=== PATIENT | female | born 1950 | race Caucasian/White ===

== ENCOUNTER 2017-12-03 17:57 | Inpatient (IN) | payer MEDICARE, MEDICAID, SELFPAY ==
[2017-12-03] VITALS (10 sets, daily range): BP systolic 111–144; BP diastolic 59–80; PULSE 76–89; RESP 15–20; TEMP 36.6–37.5; O2SAT 85–95; BMI 49.4; BMI 49.1; BMI 49.5
--- NOTE | 2017-12-03 18:34 | EKG12_ITS ---
Test Reason : Blood Pressure : / mmHG Vent. Rate : 085 BPM Atrial Rate : 085 BPM P-R Int : 138 ms QRS Dur : 074 ms QT Int : 364 ms P-R-T Axes : 063 -21 035 degrees QTc Int : 433 ms Normal sinus rhythm Normal ECG Confirmed by ANGELA ALCAZAR ([id number]), commissioning editor MARSHAL KERR ([id number] on 12/05/2017 2:52:13 PM Referred By: MARTÍN Confirmed By:ANGELA ALCAZAR
--- NOTE | 2017-12-03 18:36 | RAD_ITS ---
XR Chest 1 View INDICATION: GENERAL ILLNESS, SOB COMPARISON: September 2017 TECHNIQUE: Frontal view of the chest FINDINGS: Heart size is at the upper limits of normal. Bilateral hilar regions are markedly prominent. Hazy and patchy opacities are seen throughout the lower lung castellanos. There is no evidence of pleural effusion or pneumothorax. Osseous structures are grossly unremarkable. RAD/Chest 1 View (Portable) IMPRESSION: Increasing prominence of the bilateral hilar regions, may be vascular or lymphadenopathy. Mild edema with developing atelectasis or consolidation at the lung bases. Follow-up with additional lateral view is recommended. at 1934 Reported and signed by: Mague Hill MD Electronically Signed: Mague Hill MD at 18:32 EST Tel , Service support ,
--- NOTE | 2017-12-03 18:48 | US_ITS ---
US Venous Duplex LE Unilat / Limited INDICATION: LT LOWER LEG SWELLING AND EDEMA COMPARISON: None TECHNIQUE: Ultrasonographic grayscale, Doppler and duplex investigation of the venous structures of the left lower extremity. FINDINGS: There is normal flow and compressibility and no evidence of thrombus in the left common femoral vein and common femoral vein - greater saphenous vein junction. There is normal flow and no evidence of thrombus in the left superficial femoral vein, popliteal vein and posterior tibial vein. Views on the perineal vein are limited. The left greater saphenous vein at the level of the distal thigh to the mid calf is noncompressible and demonstrates internal echoes, compatible with acute thrombosis. Edema is seen at the distal left lower extremity US/Venous Duplex Imag/Limited/Uni IMPRESSION: Superficial venous thrombosis involving the left greater saphenous vein from the distal thigh to the mid calf. Deep venous system is patent. at 2019 Reported and signed by: Mague Hill MD Electronically Signed: Mague Hill MD at 19:17 EST Tel , Service support ,
[2017-12-03 18:57] LABS: Absolute Lymphocyte Count 1.14 X10^3/ul (0.83-4.51); Absolute Neutrophil Count 5.1 X10^3/uL (2.0-7.7); Basophil# 0.02 X10^3/uL; Basophil% 0.3 % (0-1); Eosinophil# 0.25 X10^3/uL; Eosinophils% 3.4 % (0-5); Hematocrit 53.6 % (37-47); Lymphocyte # 1.14 X10^3/ul (4.0); Lymphocyte % 15.4 % (19-41); Mean Corp Hgb Conc 29.9 g/gl (32-36); Mean Corpuscular Hgb 28.4 pg (27.0-32.0); Mean Corpuscular Volume 95.2 fL (81-99); Mean Platelet Vol. 9.8 fl (6.2-12.0); Monocyte# 0.86 X10^3/uL; Monocyte% 11.7 % (0-10); Neutrophil % 69.1 % (47-70); POSITIVE COUNT NO; POSITIVE DIFFERENTIAL NO; POSITIVE MORPHOLOGY NO; Platelet Count 201 K/mm3 (150-450); RBC Distribution Width CV 16.1 % (11.6-14.6); RBC Distribution Width SD 55.3 fl (35.1-43.9); Red Blood Count 5.63 M/mm3 (4.2-5.4); White Blood Count 7.4 K/mm3 (4.4-11.0)
[2017-12-03] MEDS: Albuterol 2.5 MG/3 ML VIAL.NEB. INHALATION ×2 (18:58)
[2017-12-03 19:56] LABS: Lactic Acid 0.7 mmol/L (0.4-2.0)
--- NOTE | 2017-12-03 21:00 | NURSING ---
WHEN THE PT WALKED TO THE BATHROOM WITHOUT OXYGEN THE PT DROPPED DOWN TO 62% HAD TO TEMPORARILY PUT ON A NONBREATHER AND NOW BACK ON 6 LITERS OF OXYGEN.
--- NOTE | 2017-12-03 21:18 | HP.PCM_ITS ---
Problem List (1) CAP (community acquired pneumonia) Status: Acute Qualifiers: Lung location: unspecified part of lung (2) Chronic diastolic heart failure Status: Chronic (3) Obesity Status: Chronic Qualifiers: Obesity type: unspecified obesity type Obesity classification: unspecified obesity classification (4) HTN (hypertension) Status: Chronic Qualifiers: Hypertension type: essential hypertension Qualified Code(s): I10 - Essential (primary) hypertension (5) Hyperlipidemia Status: Chronic Qualifiers: Hyperlipidemia type: unspecified Qualified Code(s): E78.5 - Hyperlipidemia , unspecified History of Present Illness Date of Admission: 12/03/17 Chief Complaint: Shortness of breath The patient is a 67 year old F medical history of morbid obesity, chronic diastolic heart failure, type II DM, hypertension, hyperlipidemia comes in with complaints of shortness of breath which has been gradual ongoing for a couple of days. She denied any fever but has chills and has a productive cough productive of yellowish to greenish sputum. She says she has been around sick contacts, being her grandchildren. She denies any chest pain, dizziness or palpitations. Vitals in the ED showed temperature of 90 9.5F, blood pressure 124/77, respiratory rate was 20, SPO2 is 85% on 4 L of oxygen. X-ray showed mild edema with developing atelectasis or consolidation in the lung bases, increased prominence of bilateral hilar region. Past Medical History Past Medical History (Chronic Problems): Chronic Problems (Last Reviewed 09/20/17 @ 11:56 by Luis Leone MD) CHF (congestive heart failure) (Chronic) Diabetes (Chronic) Chronic diastolic heart failure (Chronic) Shortness of breath (Chronic) Dyspnea (Chronic) Thoracic kyphosis (Chronic) Other secondary pulmonary hypertension (Chronic) Leg edema (Chronic) Obesity (Chronic) Nonrheumatic tricuspid (valve) insufficiency (Chronic) Hypersomnia (Chronic) Body mass index (BMI) 35 or more (Chronic) HTN (hypertension) (Chronic) Hyperlipidemia (Chronic) Allergies No Known Allergies Allergy (Verified 12/03/17 18:02) Home Medications: Ambulatory Orders Medication Instructions Recorded Aspirin [Adult Low Dose Aspirin EC] 81 mg PO DAILY 06/11/16 Fluticasone 0.05% [Flonase Nasal 1 spray NASAL DAILY 06/11/16 [place]] Glimepiride [Amaryl] 4 mg PO BID 06/11/16 Ergocalciferol [Vitamin D] 50,000 unit PO TUTH 09/29/17 Albuterol IH (ProAir) [Proair Hfa 2 puff INHALATION Q6H PRN PRN #1 10/01/17 (SP)Vent Pts] inhaler Furosemide [Lasix] 40 mg PO DAILY #30 tab 10/01/17 amlodipine 5 mg tablet 5 mg PO QDAY #90 tab 11/04/17 carvedilol 6.25 mg tablet 6.25 mg PO BID #180 tab 11/04/17 spironolactone 25 mg tablet 25 mg PO DAILY #1 tab 11/07/17 Surgical History: appendectomy, cholecystectomy, hysterectomy, - - Tonsillectomy Psychiatric History: No pertinent psych hx 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 Dyspnea Respiratory: Denies: Cough, Hemoptysis, Shortness of breath at rest, Shortness of breath upon exertion, Sputum production Gastrointestinal: Denies: Abdominal Pain, Constipation, Hematemesis, Nausea, Vomiting Genitourinary: Denies: Dysuria, Frequency, Incontinence Musculoskeletal: Denies: Joint Pain, Joint stiffness, Joint swelling, Joint Tenderness Skin: Denies: Rash, Wounds Neurological: Denies: Difficulty swallowing, Focal weakness, Numbness, Tingling Psychiatric: Denies: Anxiety, Depression, Homicidal Ideations, Suicidal Ideations Endocrine: Denies: Change in Body Habitus, Heat/ Cold Intolerance Hematologic/ Lymphatic: Denies: Easy Bruising, Easy Bleeding VTE Information - Inpt Only VTE Present on Admission: No VTE Pharm Prophylaxis ordered?: Yes - Physical Exam General: Alert, Oriented x3, Cooperative, No apparent distress HEENT: Atraumatic, PERRLA, EOMI, Normocephalic Oral: Moist Mucosa Neck: Supple Lungs: Normal air movement, No rales, Diminished, Wheezes Cardiovascular: Regular rate, Regular Rhythm, Normal S1, Normal S2, No murmurs Abdomen: Bowel Sounds Present, Soft, Non Tender, Non-Distended, No Hepato- splenomegaly, Obese Extremities: Edema - Bilateral leg edema, worse in the left lower leg with some erythema of the left leg. Skin: No rashes, No breakdown Musculoskeletal: No Tenderness to Palpation of Joints or Extremities Lymphatic: No Cervical, Supraclavicular, or Inguinal Adenopathy Neurological: Cranial nerves II-XII grossly intact, Motor Exam 5/5 strength throughout Psych/Mental Status: Normal Affect, Appropriate Vital Signs Temp Pulse Resp BP Pulse Ox 99.5 F H 86 20 H 124/77 H 86 12/03/17 17:59 12/03/17 18:59 12/03/17 18:59 12/03/17 17:59 12/03/17 18:04 Oxygen Flow Rate 6 Oxygen Delivery Method Nasal Cannula Weight: 139 kg Body Mass Index (BMI) 49.4 Laboratory Tests Past 24 Hrs 12/03/17 12/03/17 12/03/17 18:40 18:40 18:40 WBC 7.4 RBC 5.63 H Hgb 16.0 H Hct 53.6 H MCV 95.2 MCH 28.4 MCHC 29.9 L RDW 16.1 H RDW Differential 55.3 H Plt Count 201 MPV 9.8 Immature Gran % (Auto) 0.100 Neut % (Auto) 69.1 Lymph % (Auto) 15.4 L [place] % (Auto) 11.7 H Eos % (Auto) 3.4 Baso % (Auto) 0.3 Absolute Neuts (auto) 5.1 Absolute Lymphs (auto) 1.14 Total Counted Not Reportable PT Cancelled INR Cancelled APTT Cancelled Sodium Cancelled Potassium Cancelled Chloride Cancelled Carbon Dioxide Cancelled Anion Gap Cancelled BUN Cancelled Creatinine Cancelled Estim Creat Clear Calc Cancelled Est GFR (MDRD) Af Amer Cancelled Est GFR (MDRD) Non-Af Cancelled BUN/Creatinine Ratio Cancelled Glucose Cancelled Lactic Acid Calcium Cancelled Total Bilirubin Cancelled AST Cancelled ALT Cancelled Alkaline Phosphatase Cancelled Total Protein Cancelled Albumin Cancelled Globulin Cancelled Albumin/Globulin Ratio Cancelled 12/03/17 18:40 WBC RBC Hgb Hct MCV MCH MCHC RDW RDW Differential Plt Count MPV Immature Gran % (Auto) Neut % (Auto) Lymph % (Auto) Trinity % (Auto) Eos % (Auto) Baso % (Auto) Absolute Neuts (auto) Absolute Lymphs (auto) Total Counted PT INR APTT Sodium Potassium Chloride Carbon Dioxide Anion Gap BUN Creatinine Estim Creat Clear Calc Est GFR (MDRD) Af Amer Est GFR (MDRD) Non-Af BUN/Creatinine Ratio Glucose Lactic Acid 0.7 Calcium Total Bilirubin AST ALT Alkaline Phosphatase Total Protein Albumin Globulin Albumin/Globulin Ratio Assessment/Plan 67 year old F medical history of morbid obesity, chronic diastolic heart failure , type II DM, hypertension, hyperlipidemia, pulmonary hypertension, chronic respiratory failure on 2-3 L of oxygen comes in with complaints of shortness of breath which has been gradual ongoing for a couple of days associated with productive cough, and chills but no fever. 1. Acute on chronic respiratory failure, multifactorial secondary to HCAP/ bronchitis, acute CHF exacerbation, patient is on 2-3 L of oxygen at home, now requiring 5-6 L of oxygen, chest exam shows wheezes, no specific infiltrates seen on chest x-ray Plan: Admit to PCU, monitor on oxygen, breathing treatments, IV Levaquin, blood cultures pending, urine for streptococcal and Legionella antigen, continue to wean off for SPO2 >92% 2. Acute on chronic diastolic heart failure/pulmonary HTN, mild, CXR, CT scan of chest show vascular congestion, admitting BNP is 179 but that has to be interpreted in the light of morbid obesity, on Lasix 40 mg, will switch to IV lasix 20mg BID and 3. Type II DM, on Amaryl, would add Accu-Cheks with insulin sliding scale 4. Hypertension, continue on home amlodipine, carvedilol, spironolactone, will monitor vitals closely 5. Morbid obesity, BMI of 49.5, diet and exercise advised 6. DVT Prophylaxis with Lovenox subcu Code Visit Inpatient E&M: 03191 Init Hosp L3
--- NOTE | 2017-12-03 21:44 | CT_ITS ---
CT Chest W/O Contrast INDICATION: SOB,COUGH,LOW O2 SATS,DX WITH PNEUMONIAHX:HTN,HLD,CHF,ADENOCARCINOMA OF SEAT GLAND COMPARISON: None TECHNIQUE: Axial CT imaging of the chest without contrast. Coronal and sagittal reformatted images. Radiation dose optimization technique applied. FINDINGS: There is mediastinal lymphadenopathy with paratracheal lymph nodes measuring up to 2.3 cm. The heart size is enlarged. Prominent lymph nodes are also seen in the bilateral hilar regions, difficult to measure exactly due to the lack of IV contrast. The pulmonary vascularity is prominent. There is hazy and patchy air space disease in the dependent portion of the right lower lobe. Atelectatic changes are seen at the lung bases. Osseous structures are diffusely osteopenic. CT/Chest without Contrast IMPRESSION: Mediastinal and bilateral hilar lymphadenopathy. Cardiomegaly and pulmonary vascular congestion. Developing right lower lobe pneumonia. at 2315 Reported and signed by: Mague Hill MD Electronically Signed: Mague Hill MD at 22:13 EST Tel , Service support ,
[2017-12-03] MEDS: Piperacil/Tazobactam 3.375 GM/50 ML ML IV (21:46)
[2017-12-03 22:23] LABS: International Normalized Ratio 1.2; Partial Thromboplast Time 29.2 Seconds (24.1-36.2); Prothrombin Time (Protime)PT. 15.1 SECONDS (11.7-14.9)
[2017-12-03 22:31] LABS: ALB/GLOB Ratio 0.6 RATIO (0.9-2.4); AST(SGOT) 13 U/L (15-37); Alanine Aminotransfer ALT/SGPT 22 U/L (13-56); Albumin, Serum 2.7 g/dL (3.2-5.0); Alkaline Phosphatase 60 U/L (45-117); Anion Gap 3 (5-15); BUN 21 mg/dL (7-18); BUN/Creat Ratio 23.8 RATIO (10-20); Calcium,Total 8.4 mg/dL (8.5-10.1); Chloride 101 mmol/L (98-107); Creatinine, Serum 0.88 mg/dL (0.55-1.02); EST Glomerular Filtration Rate 67 mL/min (>60); Est Glom Filt Rate - Afr Amer 82 mL/min (>60); Estimated Creatinine Clearance 56.48 ml/min; Globulin 4.2 g/dL (2.2-4.2); Glucose 49 mg/dL (74-106); Potassium 4.1 mmol/L (3.5-5.1); Protein, Total 6.9 g/dL (6.4-8.2); Sodium Level 141 mmol/L (136-145)
[2017-12-03] MEDS: Ipratropium/Albuterol Sulfate 3 ML AMPUL.NEB INHALATION (23:50)
[2017-12-04] VITALS (22 sets, daily range): BP systolic 93–143; BP diastolic 52–77; PULSE 66–84; RESP 14–20; TEMP 36.5–37; O2SAT 88–97
[2017-12-04 00:04] LABS: BNP,B-Type NATRIURETIC PEPTIDE 179.7 pg/mL (0-100)
[2017-12-04] MEDS: guaiFENesin 1,200 MG Tablet 1200 MG PO ×3 (00:21→23:18)
[2017-12-04] MEDS: Carvedilol 6.25 MG Tablet PO ×3 (00:21→23:18)
[2017-12-04 00:46] LABS: Bedside Glucose 45 mg/dL (70-110)
[2017-12-04 00:46] LABS: Bedside Glucose 56 mg/dL (70-110)
--- NOTE | 2017-12-04 00:53 | ED.DCSUM_ITS ---
- ER Visit Summary Date of Service: 12/04/17 Chief Complaint: Shortness of breath History of Present Illness: The patient is a 67 F presenting for evaluation secondary shortness of breath. Patient states over the course last 3-4 days she has had worsening shortness of breath and a productive cough. Patient states that she was diagnosed with bronchitis a few weeks ago, initially felt better, but then got worse again. She denies any presence of fevers. She denies any nausea vomiting diarrhea or any other infectious signs or symptoms. She went to her primary care office yesterday and was noted to have a pulse ox in the 70s and was recommended to come to the emergency department, but decided to wait to come today. Patient is typically on 4 L of oxygen at home and has even been hypoxic on that. Physical Examination: Vital signs notable for hypoxia 85% on 4 L. Obese female no acute distress. Head normocephalic. Moist mucous membranes. Neck supple heart regular rate and rhythm. Lungs sounds actually clear to auscultation bilaterally with no respiratory distress. Abdomen soft nontender. Lower extremity exam shows left leg swelling and erythema but is asymmetric when compared to the right. 2+ DP pulses that are bilaterally symmetric. Test Results: Chest x-ray shows bilateral infiltrates. Duplex ultrasound shows superficial clot in the left calf. EKG shows sinus rate of [address] segments normal T waves unchanged from prior. CBC and chemistry unremarkable. Emergency Department Course and Treatment: Patient presented secondary to infectious etiology and worsening shortness of breath. She was hypoxic. She was turned up to 6 L and had improvement of her oxygen status. Workup shows evidence of pneumonia and given the patient's admission within the last 3 months I believe that this is hospital associated. Patient was administered vancomycin and Zosyn, and admitted to the hospitalist. Patient's ultrasound of her left leg shows only clot below the knee and the saphenous veins. This will be surveilled. Disposition: Admission Impression: 1. Healthcare associated pneumonia 2. Hypoxia 3. Left calf SVT This note was generated with [employer] dictation software. It may contain incorrect words, spelling, and punctuation that were not noted in review of the chart prior to signing ED Disposition - Plan for ED Patient: Disposition: Acute Care Hospital [facility] Chief Complaint: Shortness of Breath
[2017-12-04 01:16] LABS: Bedside Glucose 103 mg/dL (70-110)
[2017-12-04] MEDS: Ipratropium/Albuterol Sulfate 3 ML AMPUL.NEB INHALATION ×6 (03:22→23:26)
[2017-12-04] MEDS: Furosemide 20 MG/2 ML VIAL IV ×3 (05:16→18:32)
[2017-12-04 05:55] LABS: Hematocrit 54.1 % (37-47); Hemoglobin 15.8 g/dl (12.0-15.0); Mean Corp Hgb Conc 29.2 g/gl (32-36); Mean Corpuscular Hgb 28.2 pg (27.0-32.0); Mean Corpuscular Volume 96.6 fL (81-99); Mean Platelet Vol. 9.7 fl (6.2-12.0); Platelet Count 179 K/mm3 (150-450); RBC Distribution Width CV 16.3 % (11.6-14.6); RBC Distribution Width SD 57.1 fl (35.1-43.9); White Blood Count 8.1 K/mm3 (4.4-11.0)
[2017-12-04 06:21] LABS: Scan Indicated on CBC? Y/N NO
[2017-12-04 06:22] LABS: Anion Gap 4 (5-15); BUN 21 mg/dL (7-18); BUN/Creat Ratio 22.5 RATIO (10-20); Calcium,Total 8.7 mg/dL (8.5-10.1); Chloride 100 mmol/L (98-107); Creatinine, Serum 0.93 mg/dL (0.55-1.02); EST Glomerular Filtration Rate 63 mL/min (>60); Est Glom Filt Rate - Afr Amer 76 mL/min (>60); Estimated Creatinine Clearance 53.45 ml/min; Glucose 81 mg/dL (74-106); Potassium 4.5 mmol/L (3.5-5.1); Sodium Level 140 mmol/L (136-145)
[2017-12-04 07:01] LABS: Bedside Glucose 51 mg/dL (70-110)
[2017-12-04] MEDS: amLODIPine 5 MG Tablet PO (08:00)
[2017-12-04] MEDS: Spironolactone 25 MG Tablet PO (08:00)
[2017-12-04] MEDS: Aspirin E.C. 81 MG Tablet PO (08:00)
[2017-12-04] MEDS: Glimepiride 4 MG Tablet PO (08:00)
[2017-12-04 08:06] LABS: Bedside Glucose 89 mg/dL (70-110)
[2017-12-04] MEDS: 0.9% Saline Lock 10 ML Syringe IV ×2 (09:58→18:33)
[2017-12-04 11:56] LABS: Bedside Glucose 154 mg/dL (70-110)
--- NOTE | 2017-12-04 13:20 | PCM.PN.HOSP ---
Subjective: CC: SOB This is 67-year-old female who presented with shortness of breath and found to have pneumonia she is improving with treatment. Vitals/I&O's: Vital Signs Temp Pulse Resp BP Pulse Ox 98.1 F 70 18 99/54 L 93 12/04/17 11:33 12/04/17 11:51 12/04/17 11:33 12/04/17 11:33 12/04/17 11:33 Oxygen Flow Rate 6 Oxygen Delivery Method Nasal Cannula Weight: 138.5 kg Body Mass Index (BMI) 49.1 Intake and Output for Last 24 Hours 12/02/17 12/03/17 12/04/17 23:59 23:59 23:59 Intake Total 120 / 120 240 / 240 Balance 120 / 120 240 / 240 General: Alert, Oriented x3 HEENT: Atraumatic Oral: Moist Mucosa Neck: Supple, No JVD Lungs: Clear to auscultation Cardiovascular: Regular rate, Normal S1, Normal S2 Abdomen: Bowel Sounds Present, Soft Extremities: No edema Neurological: Cranial nerves II-XII grossly intact, Deep Tendon Reflexes 2+/4 and Symmetrical, Neuro grossly intact, Facial Droop Microbiology Past 72 Hours 12/03/17 23:45 Mucosa - Nasopharyngeal Respiratory Panel (PCR) - Final Laboratory Results 12/03/17 21:15: Sodium Cancelled, Potassium Cancelled, Chloride Cancelled, Carbon Dioxide Cancelled, Anion Gap Cancelled, BUN Cancelled, Creatinine Cancelled, Estim Creat Clear Calc Cancelled, Est GFR (MDRD) Af Amer Cancelled, Est GFR (MDRD) Non-Af Cancelled, BUN/Creatinine Ratio Cancelled, Glucose Cancelled, Calcium Cancelled, Total Bilirubin Cancelled, AST Cancelled, ALT Cancelled, Alkaline Phosphatase Cancelled, Total Protein Cancelled, Albumin Cancelled, Globulin Cancelled, Albumin/Globulin Ratio Cancelled 12/03/17 22:05: PT 15.1 H, INR 1.2, APTT 29.2 12/03/17 22:05: Sodium 141, Potassium 4.1, Chloride 101, Carbon Dioxide 37.0 H, Anion Gap 3 L, BUN 21 H, Creatinine 0.88, Estim Creat Clear Calc 56.48, Est GFR (MDRD) Af Amer 82, Est GFR (MDRD) Non-Af 67, BUN/Creatinine Ratio 23.8 H, Glucose 49 L, Calcium 8.4 L, Total Bilirubin 0.40, AST 13 L, ALT 22, Alkaline Phosphatase 60, Total Protein 6.9, Albumin 2.7 L, Globulin 4.2, Albumin/Globulin Ratio 0.6 L 12/04/17 00:15: POC Glucose 45 L 12/04/17 00:37: POC Glucose 56 L 12/04/17 01:12: POC Glucose 103 12/04/17 05:22: WBC 8.1, RBC 5.60 H, Hgb 15.8 H, Hct 54.1 H, MCV 96.6, MCH 28.2, MCHC 29.2 L, RDW 16.3 H, RDW Differential 57.1 H, Plt Count 179, MPV 9.7 12/04/17 05:22: Sodium 140, Potassium 4.5, Chloride 100, Carbon Dioxide 36.0 H, Anion Gap 4 L, BUN 21 H, Creatinine 0.93, Estim Creat Clear Calc 53.45, Est GFR (MDRD) Af Amer 76, Est GFR (MDRD) Non-Af 63, BUN/Creatinine Ratio 22.5 H, Glucose 81, Calcium 8.7 12/04/17 06:50: POC Glucose 51 L 12/04/17 07:38: POC Glucose 89 12/04/17 11:32: POC Glucose 154 H Current Medications Acetaminophen (Tylenol) 650 mg PO Q4H PRN PRN PRN Reason: FEVER Albuterol Sulfate (Ventolin Aerosols) 2.5 mg INHALATION Q4HWA.RT [facility] Albuterol/Ipratropium (Duoneb) 3 ml INHALATION Q4H.RT [facility] Last Admin: 12/04/17 11:09 Dose: 3 ml Amlodipine Besylate (Norvasc) 5 mg PO DAILY [facility] Last Admin: 12/04/17 08:00 Dose: 5 mg Aspirin (Ecotrin) 81 mg PO DAILY [facility] Last Admin: 12/04/17 08:00 Dose: 81 mg Carvedilol (Coreg) 6.25 mg PO BID [facility] Last Admin: 12/04/17 08:00 Dose: 6.25 mg Dextrose (D50w Syringe) 0 gm IV X1 PRN; Protocol PRN Reason: Hypoglycemia Fluticasone Propionate (Flonase Nasal [place]) 1 spray NASAL DAILY [facility] Last Admin: 12/04/17 07:58 Dose: Not Given Furosemide (Lasix) 20 mg IV BID@1000,1800 [facility] Last Admin: 12/04/17 09:58 Dose: 20 mg Glimepiride (Amaryl) 4 mg PO BID [facility] Last Admin: 12/04/17 08:00 Dose: 4 mg Glucagon () 1 mg IM .X1 PRN PRN Reason: Hypoglycemia Guaifenesin (Mucinex) 1,200 mg PO BID [facility] Last Admin: 12/04/17 08:00 Dose: 1,200 mg Levofloxacin (Levaquin) 750 mg in 150 mls @ 100 mls/hr IV Q24 [facility] Last Admin: 12/04/17 09:58 Dose: 100 mls/hr Insulin Aspart (Novolog Flexpen (Bkc)) 0 units SC ACHS [facility] PRN Reason: Protocol Last Admin: 12/04/17 11:37 Dose: Not Given Magnesium Hydroxide (Milk Of Magnesia) 30 ml PO DAILY PRN PRN PRN Reason: Constipation Ondansetron HCl (Zofran) 4 mg IV Q8H PRN PRN PRN Reason: NAUSEA Sodium Chloride () 5 - 15 ml IV UD PRN PRN Reason: SALINE FLUSH Last Admin: 12/04/17 09:58 Dose: 10 ml Spironolactone (Aldactone) 25 mg PO DAILY [facility] Last Admin: 12/04/17 08:00 Dose: 25 mg Assessment/Plan 1. Acute on chronic respiratory failure with hypoxia; continue on supplemental oxygen 2. Pneumonia; she is on Levaquin 3. Acute on chronic diastolic heart failure; and is clinically compensated 4. Type II DM; continue her oral agents, regular insulin sliding scale for glycemic spikes. 5. Hypertension; this is controlled. 6. Morbid obesity; weight loss is recommended 7. Mediastinal and bilateral hilar lymphadenopathy; follow-up imaging after adequate antibiotic therapy through her primary care doctor. Code Visit Inpatient E&M: 44212 Subs Hosp L3
--- NOTE | 2017-12-04 14:18 | CASEMGMT ---
Face to Face with patient for initial transition planning/care coordination assessment. RN GENEVA introduced self and role at [facility], pt voices understanding and consents to assessment at this time. Pt is sitting up in chair in no distress at this time. Pt A/O x4 at this time and answers all questions appropriately at this time. Care providers, pharmacy, and demographics verified. See attached link. Pt voices no further concerns/needs at this time. Advised pt to ask for CM if any further questions/concerns/needs arise, voices understanding. CM to follow for possible home oxygen needs and any further discharge planning. PLAN: [place] [facility]
[2017-12-04 18:31] LABS: Bedside Glucose 61 mg/dL (70-110)
[2017-12-05] VITALS (15 sets, daily range): BP systolic 115–132; BP diastolic 57–78; PULSE 70–87; RESP 16–20; TEMP 36.9–37.3; O2SAT 92–95
[2017-12-05 00:10] LABS: Bedside Glucose 72 mg/dL (70-110)
[2017-12-05 00:10] LABS: Bedside Glucose 44 mg/dL (70-110)
[2017-12-05] MEDS: Ipratropium/Albuterol Sulfate 3 ML AMPUL.NEB INHALATION ×5 (06:51→22:58)
[2017-12-05 06:55] LABS: Bedside Glucose 38 mg/dL (70-110)
[2017-12-05 06:56] LABS: Bedside Glucose 70 mg/dL (70-110)
[2017-12-05 07:16] LABS: Bedside Glucose 30 mg/dL (70-110)
[2017-12-05] MEDS: guaiFENesin 1,200 MG Tablet 1200 MG PO ×2 (09:22→21:13)
[2017-12-05] MEDS: Aspirin E.C. 81 MG Tablet PO (09:22)
[2017-12-05] MEDS: Spironolactone 25 MG Tablet PO (09:22)
[2017-12-05] MEDS: Carvedilol 6.25 MG Tablet PO ×2 (09:22→21:13)
[2017-12-05] MEDS: amLODIPine 5 MG Tablet PO (09:22)
[2017-12-05] MEDS: Furosemide 20 MG/2 ML VIAL IV ×2 (09:23→17:47)
[2017-12-05] MEDS: Glimepiride 4 MG Tablet PO ×2 (09:23→21:12)
--- NOTE | 2017-12-05 11:08 | PCM.PN.HOSP ---
Subjective: CC: SOB This is 67-year-old female who presented with shortness of breath and found to have pneumonia , still has significant dyspnea cough and occasional wheezing . Any chest pain , rapid heartbeat or palpitations. Vitals/I&O's: Vital Signs Temp Pulse Resp BP Pulse Ox 98.4 F 77 16 115/63 95 12/05/17 10:26 12/05/17 10:55 12/05/17 10:55 12/05/17 10:26 12/05/17 10:26 Oxygen Flow Rate 6 Oxygen Delivery Method Nasal Cannula Weight: 138.4 kg Body Mass Index (BMI) 49.1 Intake and Output for Last 24 Hours 12/03/17 12/04/17 12/05/17 23:59 23:59 23:59 Intake Total 120 / 120 1786 / 1786 240 / 240 Balance 120 / 120 1786 / 1786 240 / 240 General: Alert, Oriented x3 Neck: Supple, No JVD Lungs: Clear to auscultation, Wheezes Cardiovascular: Regular rate, Normal S1, Normal S2 Abdomen: Bowel Sounds Present, Non Tender, Non-Distended Extremities: No clubbing, No cyanosis Neurological: Cranial nerves II-XII grossly intact, Motor Exam 5/5 strength throughout Psych/Mental Status: Normal Affect Microbiology Past 72 Hours 12/03/17 23:45 Mucosa - Nasopharyngeal Respiratory Panel (PCR) - Final Laboratory Results 12/04/17 11:32: POC Glucose 154 H 12/04/17 18:19: POC Glucose 61 L 12/04/17 22:42: POC Glucose 30 L* 12/04/17 23:22: POC Glucose 44 L* 12/05/17 00:06: POC Glucose 72 12/05/17 06:27: POC Glucose 38 L* 12/05/17 06:51: POC Glucose 70 Current Medications Acetaminophen (Tylenol) 650 mg PO Q4H PRN PRN PRN Reason: FEVER Albuterol Sulfate (Ventolin Aerosols) 2.5 mg INHALATION Q4HWA.RT [facility] Albuterol/Ipratropium (Duoneb) 3 ml INHALATION Q4H.RT [facility] Last Admin: 12/05/17 10:55 Dose: 3 ml Amlodipine Besylate (Norvasc) 5 mg PO DAILY [facility] Last Admin: 12/05/17 09:22 Dose: 5 mg Aspirin (Ecotrin) 81 mg PO DAILY [facility] Last Admin: 12/05/17 09:22 Dose: 81 mg Carvedilol (Coreg) 6.25 mg PO BID [facility] Last Admin: 12/05/17 09:22 Dose: 6.25 mg Dextrose (D50w Syringe) 0 gm IV X1 PRN; Protocol PRN Reason: Hypoglycemia Fluticasone Propionate (Flonase Nasal [place]) 1 spray NASAL DAILY [facility] Last Admin: 12/05/17 09:23 Dose: Not Given Furosemide (Lasix) 20 mg IV BID@1000,1800 [facility] Last Admin: 12/05/17 09:23 Dose: 20 mg Glimepiride (Amaryl) 4 mg PO BID [facility] Last Admin: 12/05/17 09:23 Dose: 4 mg Glucagon () 1 mg IM .X1 PRN PRN Reason: Hypoglycemia Guaifenesin (Mucinex) 1,200 mg PO BID [facility] Last Admin: 12/05/17 09:22 Dose: 1,200 mg Levofloxacin (Levaquin) 750 mg in 150 mls @ 100 mls/hr IV Q24 [facility] Last Admin: 12/05/17 09:22 Dose: 100 mls/hr Insulin Aspart (Novolog Flexpen (Bkc)) 0 units SC ACHS [facility] PRN Reason: Protocol Last Admin: 12/05/17 08:10 Dose: Not Given Magnesium Hydroxide (Milk Of Magnesia) 30 ml PO DAILY PRN PRN PRN Reason: Constipation Ondansetron HCl (Zofran) 4 mg IV Q8H PRN PRN PRN Reason: NAUSEA Sodium Chloride () 5 - 15 ml IV UD PRN PRN Reason: SALINE FLUSH Last Admin: 12/04/17 18:33 Dose: 10 ml Spironolactone (Aldactone) 25 mg PO DAILY [facility] Last Admin: 12/05/17 09:22 Dose: 25 mg Assessment/Plan 1. Acute on chronic respiratory failure with hypoxia; continue on supplemental oxygen 2. Pneumonia/ acute bronchitis; she is on Levaquin, will place her on IV steroids and bronchodilators. 3. Acute on chronic diastolic heart failure; and is clinically compensated 4. Type II DM; continue her oral agents, regular insulin sliding scale for glycemic spikes. She may have hyperglycemia with steroids and I will them start her on Levemir. 5. Hypertension; this is controlled. 6. Morbid obesity; weight loss is recommended 7. Mediastinal and bilateral hilar lymphadenopathy; follow-up imaging after adequate antibiotic therapy through her primary care doctor. Code Visit Inpatient E&M: 95309 Subs Hosp L2
--- NOTE | 2017-12-05 11:11 | PN_ITS ---
Subjective: CC: SOB This is 67-year-old female who presented with shortness of breath and found to have pneumonia , still has significant dyspnea cough and occasional wheezing . Any chest pain , rapid heartbeat or palpitations. Vitals/I&O's: Vital Signs Temp Pulse Resp BP Pulse Ox 98.4 F 77 16 115/63 95 12/05/17 10:26 12/05/17 10:55 12/05/17 10:55 12/05/17 10:26 12/05/17 10:26 Oxygen Flow Rate 6 Oxygen Delivery Method Nasal Cannula Weight: 138.4 kg Body Mass Index (BMI) 49.1 Intake and Output for Last 24 Hours 12/03/17 12/04/17 12/05/17 23:59 23:59 23:59 Intake Total 120 / 120 1786 / 1786 240 / 240 Balance 120 / 120 1786 / 1786 240 / 240 General: Alert, Oriented x3 Neck: Supple, No JVD Lungs: Clear to auscultation, Wheezes Cardiovascular: Regular rate, Normal S1, Normal S2 Abdomen: Bowel Sounds Present, Non Tender, Non-Distended Extremities: No clubbing, No cyanosis Neurological: Cranial nerves II-XII grossly intact, Motor Exam 5/5 strength throughout Psych/Mental Status: Normal Affect Microbiology Past 72 Hours 12/03/17 23:45 Mucosa - Nasopharyngeal Respiratory Panel (PCR) - Final Laboratory Results 12/04/17 11:32: POC Glucose 154 H 12/04/17 18:19: POC Glucose 61 L 12/04/17 22:42: POC Glucose 30 L* 12/04/17 23:22: POC Glucose 44 L* 12/05/17 00:06: POC Glucose 72 12/05/17 06:27: POC Glucose 38 L* 12/05/17 06:51: POC Glucose 70 Current Medications Acetaminophen (Tylenol) 650 mg PO Q4H PRN PRN PRN Reason: FEVER Albuterol Sulfate (Ventolin Aerosols) 2.5 mg INHALATION Q4HWA.RT [facility] Albuterol/Ipratropium (Duoneb) 3 ml INHALATION Q4H.RT [facility] Last Admin: 12/05/17 10:55 Dose: 3 ml Amlodipine Besylate (Norvasc) 5 mg PO DAILY [facility] Last Admin: 12/05/17 09:22 Dose: 5 mg Aspirin (Ecotrin) 81 mg PO DAILY [facility] Last Admin: 12/05/17 09:22 Dose: 81 mg Carvedilol (Coreg) 6.25 mg PO BID [facility] Last Admin: 12/05/17 09:22 Dose: 6.25 mg Dextrose (D50w Syringe) 0 gm IV X1 PRN; Protocol PRN Reason: Hypoglycemia Fluticasone Propionate (Flonase Nasal [place]) 1 spray NASAL DAILY [facility] Last Admin: 12/05/17 09:23 Dose: Not Given Furosemide (Lasix) 20 mg IV BID@1000,1800 [facility] Last Admin: 12/05/17 09:23 Dose: 20 mg Glimepiride (Amaryl) 4 mg PO BID [facility] Last Admin: 12/05/17 09:23 Dose: 4 mg Glucagon () 1 mg IM .X1 PRN PRN Reason: Hypoglycemia Guaifenesin (Mucinex) 1,200 mg PO BID [facility] Last Admin: 12/05/17 09:22 Dose: 1,200 mg Levofloxacin (Levaquin) 750 mg in 150 mls @ 100 mls/hr IV Q24 [facility] Last Admin: 12/05/17 09:22 Dose: 100 mls/hr Insulin Aspart (Novolog Flexpen (Bkc)) 0 units SC ACHS [facility] PRN Reason: Protocol Last Admin: 12/05/17 08:10 Dose: Not Given Magnesium Hydroxide (Milk Of Magnesia) 30 ml PO DAILY PRN PRN PRN Reason: Constipation Ondansetron HCl (Zofran) 4 mg IV Q8H PRN PRN PRN Reason: NAUSEA Sodium Chloride () 5 - 15 ml IV UD PRN PRN Reason: SALINE FLUSH Last Admin: 12/04/17 18:33 Dose: 10 ml Spironolactone (Aldactone) 25 mg PO DAILY [facility] Last Admin: 12/05/17 09:22 Dose: 25 mg Assessment/Plan 1. Acute on chronic respiratory failure with hypoxia; continue on supplemental oxygen 2. Pneumonia/ acute bronchitis; she is on Levaquin, will place her on IV steroids and bronchodilators. 3. Acute on chronic diastolic heart failure; and is clinically compensated 4. Type II DM; continue her oral agents, regular insulin sliding scale for glycemic spikes. She may have hyperglycemia with steroids and I will them start her on Levemir. 5. Hypertension; this is controlled. 6. Morbid obesity; weight loss is recommended 7. Mediastinal and bilateral hilar lymphadenopathy; follow-up imaging after adequate antibiotic therapy through her primary care doctor. Code Visit Inpatient E&M: 25870 Subs Hosp L2
[2017-12-05 11:36] LABS: Bedside Glucose 121 mg/dL (70-110)
[2017-12-05 15:36] LABS: Bedside Glucose 35 mg/dL (70-110)
[2017-12-05 16:16] LABS: Bedside Glucose 102 mg/dL (70-110)
[2017-12-05] MEDS: 0.9% Saline Lock 10 ML Syringe IV (21:14)
[2017-12-05 23:20] LABS: Bedside Glucose 199 mg/dL (70-110)
[2017-12-06] VITALS (18 sets, daily range): BP systolic 105–140; BP diastolic 39–97; PULSE 76–99; RESP 16–24; TEMP 36.5–36.8; O2SAT 90–94
[2017-12-06] MEDS: Enoxaparin 40 MG/0.4 ML Syringe SC (05:38)
[2017-12-06 06:45] LABS: Bedside Glucose 243 mg/dL (70-110)
[2017-12-06] MEDS: Ipratropium/Albuterol Sulfate 3 ML AMPUL.NEB INHALATION ×5 (06:46→23:20)
[2017-12-06] MEDS: Glimepiride 4 MG Tablet PO (08:31)
[2017-12-06] MEDS: Carvedilol 6.25 MG Tablet PO ×2 (08:31→21:24)
[2017-12-06] MEDS: Spironolactone 25 MG Tablet PO (08:31)
[2017-12-06] MEDS: guaiFENesin 1,200 MG Tablet 1200 MG PO ×2 (08:32→21:24)
[2017-12-06] MEDS: Furosemide 20 MG/2 ML VIAL IV (08:32)
[2017-12-06] MEDS: Aspirin E.C. 81 MG Tablet PO (08:32)
[2017-12-06] MEDS: amLODIPine 5 MG Tablet PO (08:32)
[2017-12-06 11:46] LABS: Bedside Glucose 427 mg/dL (70-110)
[2017-12-06 16:16] LABS: Bedside Glucose 401 mg/dL (70-110)
--- NOTE | 2017-12-06 16:26 | PCM.PN.HOSP ---
Subjective: CC: SOB This is 67-year-old female who presented with shortness of breath and found to have pneumonia , she reports significant dyspnea and cough. She does not feel she is ready to be discharged home yet. Vitals/I&O's: Vital Signs Temp Pulse Resp BP Pulse Ox 98.3 F 85 16 116/66 93 12/06/17 15:46 12/06/17 15:46 12/06/17 15:46 12/06/17 15:46 12/06/17 15:46 Oxygen Flow Rate 5 Oxygen Delivery Method Nasal Cannula Weight: 138.2 kg Body Mass Index (BMI) 49.1 Intake and Output for Last 24 Hours 12/04/17 12/05/17 12/06/17 23:59 23:59 23:59 Intake Total 178 / 178 1200 / 1200 840 / 840 Balance 178 / 178 1200 / 1200 840 / 840 General: Alert, Oriented x3 HEENT: Atraumatic Oral: Moist Mucosa Lungs: Wheezes Cardiovascular: Regular rate, Normal S1, Normal S2 Abdomen: Bowel Sounds Present, Soft, Non Tender Extremities: No edema Neurological: Cranial nerves II-XII grossly intact, Deep Tendon Reflexes 2+/4 and Symmetrical, Motor Exam 5/5 strength throughout Microbiology Past 72 Hours 12/03/17 23:45 Mucosa - Nasopharyngeal Respiratory Panel (PCR) - Final Laboratory Results 12/05/17 21:10: POC Glucose 199 H 12/06/17 06:30: POC Glucose 243 H 12/06/17 11:39: POC Glucose 427 H 12/06/17 16:01: POC Glucose 401 H Current Medications Acetaminophen (Tylenol) 650 mg PO Q4H PRN PRN PRN Reason: FEVER Albuterol Sulfate (Ventolin Aerosols) 2.5 mg INHALATION Q4HWA.RT [facility] Albuterol/Ipratropium (Duoneb) 3 ml INHALATION Q4H.RT [facility] Last Admin: 12/06/17 15:04 Dose: 3 ml Amlodipine Besylate (Norvasc) 5 mg PO DAILY [facility] Last Admin: 12/06/17 08:32 Dose: 5 mg Aspirin (Ecotrin) 81 mg PO DAILY [facility] Last Admin: 12/06/17 08:32 Dose: 81 mg Carvedilol (Coreg) 6.25 mg PO BID [facility] Last Admin: 12/06/17 08:31 Dose: 6.25 mg Dextrose (D50w Syringe) 0 gm IV X1 PRN; Protocol PRN Reason: Hypoglycemia Enoxaparin Sodium (Lovenox) 40 mg SC DAILY@0600 [facility] Last Admin: 12/06/17 05:38 Dose: 40 mg Fluticasone Propionate (Flonase Nasal [place]) 1 spray NASAL DAILY [facility] Last Admin: 12/06/17 08:32 Dose: Not Given Furosemide (Lasix) 20 mg IV BID@1000,1800 [facility] Last Admin: 12/06/17 08:32 Dose: 20 mg Glimepiride (Amaryl) 4 mg PO BID [facility] Last Admin: 12/06/17 08:31 Dose: 4 mg Glucagon () 1 mg IM .X1 PRN PRN Reason: Hypoglycemia Guaifenesin (Mucinex) 1,200 mg PO BID [facility] Last Admin: 12/06/17 08:32 Dose: 1,200 mg Levofloxacin (Levaquin) 750 mg in 150 mls @ 100 mls/hr IV Q24 [facility] Last Admin: 12/06/17 10:14 Dose: 100 mls/hr Insulin Aspart (Novolog Flexpen (Bkc)) 0 units SC ACHS [facility] PRN Reason: Protocol Last Admin: 12/06/17 16:01 Dose: 4 u Magnesium Hydroxide (Milk Of Magnesia) 30 ml PO DAILY PRN PRN PRN Reason: Constipation Methylprednisolone (Solu-Medrol) 40 mg IV Q8 [facility] Last Admin: 12/06/17 14:26 Dose: 40 mg Ondansetron HCl (Zofran) 4 mg IV Q8H PRN PRN PRN Reason: NAUSEA Sodium Chloride () 5 - 15 ml IV UD PRN PRN Reason: SALINE FLUSH Last Admin: 12/05/17 21:14 Dose: 10 ml Spironolactone (Aldactone) 25 mg PO DAILY [facility] Last Admin: 12/06/17 08:31 Dose: 25 mg Assessment/Plan 1. Acute on chronic respiratory failure with hypoxia; continue on supplemental oxygen 2. Pneumonia/ acute bronchitis; she is on Levaquin, IV steroids and bronchodilators. 3. Acute on chronic diastolic heart failure; 4. Type II DM; glycemia worsened by steroids, will place her on Levemir , will stop her Amaryl, she is on regular insulin sliding scale for glycemic spikes.. 5. Hypertension; this is controlled. 6. Morbid obesity; weight loss is recommended 7. Mediastinal and bilateral hilar lymphadenopathy; follow-up imaging after adequate antibiotic therapy through her primary care doctor. 8. Superficial venous thrombosis involving the left greater saphenous vein; continue on Aspirin. 9. DVT prophylaxis with Lovenox. Code Visit Inpatient E&M: 78375 Subs Hosp L2
[2017-12-06] MEDS: 0.9% Saline Lock 10 ML Syringe IV (21:29)
[2017-12-07] VITALS (17 sets, daily range): BP systolic 105–126; BP diastolic 56–73; PULSE 71–87; RESP 12–20; TEMP 36.6–36.7; O2SAT 88–95
[2017-12-07 00:21] LABS: Bedside Glucose 382 mg/dL (70-110)
[2017-12-07] MEDS: Enoxaparin 40 MG/0.4 ML Syringe SC (06:18)
[2017-12-07] MEDS: 0.9% Saline Lock 10 ML Syringe IV (06:19)
[2017-12-07] MEDS: Ipratropium/Albuterol Sulfate 3 ML AMPUL.NEB INHALATION ×5 (06:53→23:08)
[2017-12-07 06:56] LABS: Bedside Glucose 305 mg/dL (70-110)
--- NOTE | 2017-12-07 08:09 | PCM.PN.HOSP ---
Patient Problems: Active and Suspected Problems (Last Reviewed 09/20/17 @ 11:56 by Luis Leone MD) Acute respiratory failure with hypoxia (Acute) Heart failure with preserved ejection fraction (Acute) Subjective: Breathing well. No worsening SOB. On 2l nc oxygen at home (currently 6l). +cough, non-productive. No chest pain. Vitals/I&O's: Vital Signs Temp Pulse Resp BP Pulse Ox 36.7 C 87 16 126/73 H 91 12/07/17 03:03 12/07/17 08:02 12/07/17 06:53 12/07/17 03:03 12/07/17 08:02 Oxygen Flow Rate 4 Oxygen Delivery Method Nasal Cannula Weight: 138.4 kg Body Mass Index (BMI) 49.1 Intake and Output for Last 24 Hours 12/05/17 12/06/17 12/07/17 23:59 23:59 23:59 Intake Total 1200 / 1200 1200 / 1200 1080 / 1080 Balance 1200 / 1200 1200 / 1200 1080 / 1080 General: Alert, Cooperative, No apparent distress HEENT: Atraumatic, Normocephalic Neck: - - redundant tissue on neck Lungs: Clear to auscultation, Diminished Cardiovascular: Regular rate, Regular Rhythm, Normal S1, Normal S2, No murmurs Abdomen: Bowel Sounds Present, Soft, Non Tender, Non-Distended, No Hepato-splenomegaly Extremities: No edema, No Calf Tenderness Psych/Mental Status: Normal Affect, Appropriate Microbiology Past 72 Hours 12/03/17 23:45 Mucosa - Nasopharyngeal Respiratory Panel (PCR) - Final Laboratory Results 12/06/17 11:39: POC Glucose 427 H 12/06/17 16:01: POC Glucose 401 H 12/06/17 21:10: POC Glucose 382 H 12/07/17 06:52: POC Glucose 305 H Current Medications Acetaminophen (Tylenol) 650 mg PO Q4H PRN PRN PRN Reason: FEVER Albuterol Sulfate (Ventolin Aerosols) 2.5 mg INHALATION Q4HWA.RT [facility] Albuterol/Ipratropium (Duoneb) 3 ml INHALATION Q4H.RT [facility] Last Admin: 12/07/17 06:53 Dose: 3 ml Amlodipine Besylate (Norvasc) 5 mg PO DAILY [facility] Last Admin: 12/06/17 08:32 Dose: 5 mg Aspirin (Ecotrin) 81 mg PO DAILY [facility] Last Admin: 12/06/17 08:32 Dose: 81 mg Carvedilol (Coreg) 6.25 mg PO BID [facility] Last Admin: 12/06/17 21:24 Dose: 6.25 mg Dextrose (D50w Syringe) 0 gm IV X1 PRN; Protocol PRN Reason: Hypoglycemia Enoxaparin Sodium (Lovenox) 40 mg SC DAILY@0600 [facility] Last Admin: 12/07/17 06:18 Dose: 40 mg Fluticasone Propionate (Flonase Nasal [place]) 1 spray NASAL DAILY [facility] Last Admin: 12/06/17 08:32 Dose: Not Given Glucagon () 1 mg IM .X1 PRN PRN Reason: Hypoglycemia Guaifenesin (Mucinex) 1,200 mg PO BID [facility] Last Admin: 12/06/17 21:24 Dose: 1,200 mg Levofloxacin (Levaquin) 750 mg in 150 mls @ 100 mls/hr IV Q24 [facility] Last Admin: 12/06/17 10:14 Dose: 100 mls/hr Insulin Aspart (Novolog Flexpen (Bkc)) 0 units SC ACHS [facility] PRN Reason: Protocol Last Admin: 12/06/17 21:24 Dose: 4 u Insulin Detemir (Levemir (Bkc)) 20 units SC QHS [facility] Last Admin: 12/06/17 21:38 Dose: 20 units Magnesium Hydroxide (Milk Of Magnesia) 30 ml PO DAILY PRN PRN PRN Reason: Constipation Methylprednisolone (Solu-Medrol) 40 mg IV Q8 [facility] Last Admin: 12/07/17 06:18 Dose: 40 mg Nutritional Formula (Lactose Free) (Glucerna Shake) 120 ml PO 4X/DAY [facility] Ondansetron HCl (Zofran) 4 mg IV Q8H PRN PRN PRN Reason: NAUSEA Sodium Chloride () 5 - 15 ml IV UD PRN PRN Reason: SALINE FLUSH Last Admin: 12/07/17 06:19 Dose: 10 ml Spironolactone (Aldactone) 25 mg PO DAILY [facility] Last Admin: 12/06/17 08:31 Dose: 25 mg Assessment/Plan Active and Suspected Problems (Last Reviewed 09/20/17 @ 11:56 by Luis Leone MD) Acute respiratory failure with hypoxia (Acute) Heart failure with preserved ejection fraction (Acute) 1. acute hypoxic resp failure: essentially unchanged suspect d/t CHF + pulm HTN +/- OHS +/- ZA, doubt pneumonia dc abx recheck cxr no obvious COPD, change steroid to prednisone 2. HFpEF EF 60% from [facility] 06/12/16 Resume oral lasix for now (may change to IV, if worsened CHF on CXR) start low dose jamie 3. pulmonary hypertension likely combo of group 2 and 3 outpt PSG treat the underlying processes 4. DM2, uncontrolled exacerbated by steroids monitor w steroid deescalation 5. DVT proph: LMWH. Code Visit Inpatient E&M: 82805 Subs Hosp L2
--- NOTE | 2017-12-07 08:23 | PN_ITS ---
Patient Problems: Active and Suspected Problems (Last Reviewed 09/20/17 @ 11:56 by Luis Leone MD) Acute respiratory failure with hypoxia (Acute) Heart failure with preserved ejection fraction (Acute) Subjective: Breathing well. No worsening SOB. On 2l nc oxygen at home (currently 6l). +cough , non-productive. No chest pain. Vitals/I&O's: Vital Signs Temp Pulse Resp BP Pulse Ox 36.7 C 87 16 126/73 H 91 12/07/17 03:03 12/07/17 08:02 12/07/17 06:53 12/07/17 03:03 12/07/17 08:02 Oxygen Flow Rate 4 Oxygen Delivery Method Nasal Cannula Weight: 138.4 kg Body Mass Index (BMI) 49.1 Intake and Output for Last 24 Hours 12/05/17 12/06/17 12/07/17 23:59 23:59 23:59 Intake Total 1200 / 1200 1200 / 1200 1080 / 1080 Balance 1200 / 1200 1200 / 1200 1080 / 1080 General: Alert, Cooperative, No apparent distress HEENT: Atraumatic, Normocephalic Neck: - - redundant tissue on neck Lungs: Clear to auscultation, Diminished Cardiovascular: Regular rate, Regular Rhythm, Normal S1, Normal S2, No murmurs Abdomen: Bowel Sounds Present, Soft, Non Tender, Non-Distended, No Hepato- splenomegaly Extremities: No edema, No Calf Tenderness Psych/Mental Status: Normal Affect, Appropriate Microbiology Past 72 Hours 12/03/17 23:45 Mucosa - Nasopharyngeal Respiratory Panel (PCR) - Final Laboratory Results 12/06/17 11:39: POC Glucose 427 H 12/06/17 16:01: POC Glucose 401 H 12/06/17 21:10: POC Glucose 382 H 12/07/17 06:52: POC Glucose 305 H Current Medications Acetaminophen (Tylenol) 650 mg PO Q4H PRN PRN PRN Reason: FEVER Albuterol Sulfate (Ventolin Aerosols) 2.5 mg INHALATION Q4HWA.RT [facility] Albuterol/Ipratropium (Duoneb) 3 ml INHALATION Q4H.RT [facility] Last Admin: 12/07/17 06:53 Dose: 3 ml Amlodipine Besylate (Norvasc) 5 mg PO DAILY [facility] Last Admin: 12/06/17 08:32 Dose: 5 mg Aspirin (Ecotrin) 81 mg PO DAILY [facility] Last Admin: 12/06/17 08:32 Dose: 81 mg Carvedilol (Coreg) 6.25 mg PO BID [facility] Last Admin: 12/06/17 21:24 Dose: 6.25 mg Dextrose (D50w Syringe) 0 gm IV X1 PRN; Protocol PRN Reason: Hypoglycemia Enoxaparin Sodium (Lovenox) 40 mg SC DAILY@0600 [facility] Last Admin: 12/07/17 06:18 Dose: 40 mg Fluticasone Propionate (Flonase Nasal [place]) 1 spray NASAL DAILY [facility] Last Admin: 12/06/17 08:32 Dose: Not Given Glucagon () 1 mg IM .X1 PRN PRN Reason: Hypoglycemia Guaifenesin (Mucinex) 1,200 mg PO BID [facility] Last Admin: 12/06/17 21:24 Dose: 1,200 mg Levofloxacin (Levaquin) 750 mg in 150 mls @ 100 mls/hr IV Q24 [facility] Last Admin: 12/06/17 10:14 Dose: 100 mls/hr Insulin Aspart (Novolog Flexpen (Bkc)) 0 units SC ACHS [facility] PRN Reason: Protocol Last Admin: 12/06/17 21:24 Dose: 4 u Insulin Detemir (Levemir (Bkc)) 20 units SC QHS [facility] Last Admin: 12/06/17 21:38 Dose: 20 units Magnesium Hydroxide (Milk Of Magnesia) 30 ml PO DAILY PRN PRN PRN Reason: Constipation Methylprednisolone (Solu-Medrol) 40 mg IV Q8 [facility] Last Admin: 12/07/17 06:18 Dose: 40 mg Nutritional Formula (Lactose Free) (Glucerna Shake) 120 ml PO 4X/DAY [facility] Ondansetron HCl (Zofran) 4 mg IV Q8H PRN PRN PRN Reason: NAUSEA Sodium Chloride () 5 - 15 ml IV UD PRN PRN Reason: SALINE FLUSH Last Admin: 12/07/17 06:19 Dose: 10 ml Spironolactone (Aldactone) 25 mg PO DAILY [facility] Last Admin: 12/06/17 08:31 Dose: 25 mg Assessment/Plan Active and Suspected Problems (Last Reviewed 09/20/17 @ 11:56 by Luis Leone MD) Acute respiratory failure with hypoxia (Acute) Heart failure with preserved ejection fraction (Acute) 1. acute hypoxic resp failure: * essentially unchanged * suspect d/t CHF + pulm HTN +/- OHS +/- ZA, doubt pneumonia * dc abx * recheck cxr * no obvious COPD, change steroid to prednisone 2. HFpEF * EF 60% from [facility] 06/12/16 * Resume oral lasix for now (may change to IV, if worsened CHF on CXR) * start low dose jamie 3. pulmonary hypertension * likely combo of group 2 and 3 * outpt PSG * treat the underlying processes 4. DM2, uncontrolled * exacerbated by steroids * monitor w steroid deescalation 5. DVT proph: LMWH. Code Visit Inpatient E&M: 91162 Subs Hosp L2
--- NOTE | 2017-12-07 08:24 | RAD_ITS ---
STUDY: X-RAY CHEST REASON FOR EXAM: Female, 67 years old. Shortness of breath. TECHNIQUE: Single AP portable view of the chest. COMPARISON: 12/03/2017. FINDINGS: There is elevation of the right hemidiaphragm. There is improved pulmonary venous congestion. There is no demonstrated pleural abnormality. There is borderline cardiomegaly. Normal mediastinum and ryann. Normal visualized pulmonary arteries. Normal visualized aortic arch and descending thoracic aorta. The thoracic spine is obscured. Normal visualized ribs, clavicles, and shoulders. There is no demonstrated abnormality of the visualized soft tissue structures of the upper abdomen. RAD/Chest 1 View (Portable) IMPRESSION: Elevation of the right hemidiaphragm. Improved pulmonary venous congestion. Electronically Signed: Chente De La Cruz MD at 10:41 EST Tel , Service support ,
[2017-12-07] MEDS: Furosemide 40 MG Tablet PO ×2 (09:13→18:05)
[2017-12-07] MEDS: Lisinopril 5 MG Tablet PO (09:13)
[2017-12-07] MEDS: amLODIPine 5 MG Tablet PO (09:14)
[2017-12-07] MEDS: Carvedilol 6.25 MG Tablet PO ×2 (09:14→21:18)
[2017-12-07] MEDS: Aspirin E.C. 81 MG Tablet PO (09:14)
[2017-12-07] MEDS: Spironolactone 25 MG Tablet PO (09:14)
[2017-12-07] MEDS: Glucerna Shake 120 ML LIQUID PO ×4 (09:16→21:18)
[2017-12-07] MEDS: guaiFENesin 1,200 MG Tablet 1200 MG PO ×2 (09:17→21:19)
[2017-12-07 11:01] LABS: Bedside Glucose 329 mg/dL (70-110)
[2017-12-07 16:30] LABS: Bedside Glucose 292 mg/dL (70-110)
[2017-12-07 23:56] LABS: Bedside Glucose 370 mg/dL (70-110)
[2017-12-08] VITALS (17 sets, daily range): BP systolic 113–147; BP diastolic 58–79; PULSE 71–100; RESP 16–24; TEMP 36.3–36.8; O2SAT 90–95
[2017-12-08 06:07] LABS: Absolute Lymphocyte Count 0.89 X10^3/ul (0.83-4.51); Absolute Neutrophil Count 9.2 X10^3/uL (2.0-7.7); Hematocrit 51.2 % (37-47); Hemoglobin 15.2 g/dl (12.0-15.0); Lymphocyte # 0.89 X10^3/ul (4.0); Lymphocyte % 8.3 % (19-41); Mean Corp Hgb Conc 29.7 g/gl (32-36); Mean Corpuscular Hgb 28.4 pg (27.0-32.0); Mean Corpuscular Volume 95.7 fL (81-99); Mean Platelet Vol. 9.9 fl (6.2-12.0); Monocyte# 0.56 X10^3/uL; Monocyte% 5.2 % (0-10); Neutrophil # 9.22 X10^3/uL (2.7-7.7); Neutrophil % 86.4 % (47-70); Platelet Count 184 K/mm3 (150-450); RBC Distribution Width CV 15.5 % (11.6-14.6); RBC Distribution Width SD 53.7 fl (35.1-43.9); Red Blood Count 5.35 M/mm3 (4.2-5.4); White Blood Count 10.7 K/mm3 (4.4-11.0)
[2017-12-08 06:18] LABS: Anion Gap 3 (5-15); BUN 42 mg/dL (7-18); BUN/Creat Ratio 42.1 RATIO (10-20); Calcium,Total 9.2 mg/dL (8.5-10.1); Chloride 94 mmol/L (98-107); EST Glomerular Filtration Rate 59 mL/min (>60); Est Glom Filt Rate - Afr Amer 71 mL/min (>60); Glucose 305 mg/dL (74-106); Potassium 4.7 mmol/L (3.5-5.1); Sodium Level 137 mmol/L (136-145)
[2017-12-08 06:29] LABS: POSITIVE COUNT NO; POSITIVE DIFFERENTIAL NO; POSITIVE MORPHOLOGY NO
[2017-12-08 06:45] LABS: Bedside Glucose 260 mg/dL (70-110)
[2017-12-08] MEDS: Ipratropium/Albuterol Sulfate 3 ML AMPUL.NEB INHALATION ×5 (07:04→23:49)
[2017-12-08] MEDS: Furosemide 40 MG Tablet PO ×2 (09:55→18:00)
[2017-12-08] MEDS: Aspirin E.C. 81 MG Tablet PO (09:55)
[2017-12-08] MEDS: amLODIPine 5 MG Tablet PO (09:55)
[2017-12-08] MEDS: Lisinopril 5 MG Tablet PO (09:55)
[2017-12-08] MEDS: guaiFENesin 1,200 MG Tablet 1200 MG PO ×2 (09:55→21:44)
[2017-12-08] MEDS: Carvedilol 6.25 MG Tablet PO ×2 (09:55→21:44)
[2017-12-08] MEDS: Spironolactone 25 MG Tablet PO (09:55)
[2017-12-08] MEDS: Glucerna Shake 120 ML LIQUID PO ×2 (09:59→14:11)
--- NOTE | 2017-12-08 11:25 | PCM.PN.HOSP ---
Patient Problems: Active and Suspected Problems (Last Reviewed 09/20/17 @ 11:56 by Luis Leone MD) Heart failure with preserved ejection fraction (Acute) Acute respiratory failure with hypoxia (Acute) Subjective: breathing well, despite still being on 6 liters/nc. Vitals/I&O's: Vital Signs Temp Pulse Resp BP Pulse Ox 36.3 C L 80 16 113/79 95 12/08/17 07:59 12/08/17 11:10 12/08/17 11:04 12/08/17 07:59 12/08/17 07:59 Oxygen Flow Rate 6 Oxygen Delivery Method Nasal Cannula Weight: 138.6 kg Body Mass Index (BMI) 49.1 Intake and Output for Last 24 Hours 12/06/17 12/07/17 12/08/17 23:59 23:59 23:59 Intake Total 1200 / 1200 1800 / 1800 200 / 200 Balance 1200 / 1200 1800 / 1800 200 / 200 General: Alert, Cooperative, No apparent distress, - - sleeping, easily awoke, but dozed off several times during encounter. oxygen part way out of nares. HEENT: Atraumatic, Normocephalic Neck: No Nodes, Thyroid Normal Size and Texture Lungs: Clear to auscultation, No rhonchi, No wheeze, Diminished Cardiovascular: Regular rate, Regular Rhythm, Normal S1, Normal S2, No murmurs Abdomen: Bowel Sounds Present, Soft, Non Tender, Non-Distended, No Hepato-splenomegaly Extremities: No clubbing, No cyanosis, No Calf Tenderness, Edema Skin: No rashes, No breakdown Psych/Mental Status: Normal Affect, Appropriate Laboratory Results 12/07/17 16:27: POC Glucose 292 H 12/07/17 21:17: POC Glucose 370 H 12/08/17 05:16: WBC 10.7, RBC 5.35, Hgb 15.2 H, Hct 51.2 H, MCV 95.7, MCH 28.4, MCHC 29.7 L, RDW 15.5 H, RDW Differential 53.7 H, Plt Count 184, MPV 9.9, Immature Gran % (Auto) 0.100, Neut % (Auto) 86.4 H, Lymph % (Auto) 8.3 L, [place] % (Auto) 5.2, Eos % (Auto) 0.0, Baso % (Auto) 0.0, Absolute Neuts (auto) 9.2 H, Absolute Lymphs (auto) 0.89, Total Counted Not Reportable 12/08/17 05:16: Sodium 137, Potassium 4.7, Chloride 94 L, Carbon Dioxide 40.0 H, Anion Gap 3 L, BUN 42 H, Creatinine 1.00, Estim Creat Clear Calc 49.70, Est GFR (MDRD) Af Amer 71, Est GFR (MDRD) Non-Af 59 L, BUN/Creatinine Ratio 42.1 H, Glucose 305 H, Calcium 9.2 12/08/17 06:40: POC Glucose 260 H Current Medications Acetaminophen (Tylenol) 650 mg PO Q4H PRN PRN PRN Reason: FEVER Albuterol Sulfate (Ventolin Aerosols) 2.5 mg INHALATION Q4HWA.RT [facility] Albuterol/Ipratropium (Duoneb) 3 ml INHALATION Q4H.RT [facility] Last Admin: 12/08/17 11:04 Dose: 3 ml Amlodipine Besylate (Norvasc) 5 mg PO DAILY [facility] Last Admin: 12/08/17 09:55 Dose: 5 mg Aspirin (Ecotrin) 81 mg PO DAILY [facility] Last Admin: 12/08/17 09:55 Dose: 81 mg Carvedilol (Coreg) 6.25 mg PO BID [facility] Last Admin: 12/08/17 09:55 Dose: 6.25 mg Dextrose (D50w Syringe) 0 gm IV X1 PRN; Protocol PRN Reason: Hypoglycemia Enoxaparin Sodium (Lovenox) 40 mg SC DAILY@0600 [facility] Last Admin: 12/08/17 06:43 Dose: Not Given Fluticasone Propionate (Flonase Nasal [place]) 1 spray NASAL DAILY [facility] Last Admin: 12/08/17 09:54 Dose: Not Given Furosemide (Lasix) 40 mg PO BID@1000,1800 [facility] Last Admin: 12/08/17 09:55 Dose: 40 mg Glucagon () 1 mg IM .X1 PRN PRN Reason: Hypoglycemia Guaifenesin (Mucinex) 1,200 mg PO BID [facility] Last Admin: 12/08/17 09:55 Dose: 1,200 mg Insulin Aspart (Novolog Flexpen (Bkc)) 0 units SC ACHS [facility] PRN Reason: Protocol Last Admin: 12/08/17 09:59 Dose: 2 u Insulin Aspart (Novolog Flexpen (Bk)) 8 units SC TIDAC [facility] Insulin Detemir (Levemir (Bk)) 30 units SC QHS [facility] Last Admin: 12/08/17 10:00 Dose: 30 units Lisinopril (Zestril) 5 mg PO DAILY [facility] Last Admin: 12/08/17 09:55 Dose: 5 mg Magnesium Hydroxide (Milk Of Magnesia) 30 ml PO DAILY PRN PRN PRN Reason: Constipation Nutritional Formula (Lactose Free) (Glucerna Shake) 120 ml PO 4X/DAY [facility] Last Admin: 12/08/17 09:59 Dose: 120 ml Ondansetron HCl (Zofran) 4 mg IV Q8H PRN PRN PRN Reason: NAUSEA Prednisone (Prednisone) 40 mg PO DAILY@0800 [facility] Last Admin: 12/08/17 09:55 Dose: 40 mg Sodium Chloride () 5 - 15 ml IV UD PRN PRN Reason: SALINE FLUSH Last Admin: 12/07/17 06:19 Dose: 10 ml Spironolactone (Aldactone) 25 mg PO DAILY [facility] Last Admin: 12/08/17 09:55 Dose: 25 mg Assessment/Plan Active and Suspected Problems (Last Reviewed 09/20/17 @ 11:56 by Luis Leone MD) Heart failure with preserved ejection fraction (Acute) Acute respiratory failure with hypoxia (Acute) 1. acute hypoxic resp failure: essentially unchanged suspect d/t CHF + pulm HTN +/- OHS +/- ZA, doubt pneumonia dc abx CXR shows improved aeration no obvious COPD, change steroid to prednisone 40 mg through 12/12 still on 6 liters, but satting well. I advised RN to wean as tolerated to keep sats at 90+. would like to see pt requiring less oxygen before discharge. 2. HFpEF EF 60% from [facility] 06/12/16 Resume oral lasix for now (may change to IV, if worsened CHF on CXR) start low dose jamie 3. pulmonary hypertension likely combo of group 2 and 3 outpt PSG treat the underlying processes 4. DM2, uncontrolled exacerbated by steroids monitor w steroid deescalation increased levemir from 20 to 30, scheduled log 5. DVT proph: LMWH. 6. disposition: to home once oxygen requires can be sustain with 5 or less liters/min. hopefully 2/26. Code Visit Inpatient E&M: 09518 Subs Hosp L2
--- NOTE | 2017-12-08 11:31 | PN_ITS ---
Patient Problems: Active and Suspected Problems (Last Reviewed 09/20/17 @ 11:56 by Luis Leone MD) Heart failure with preserved ejection fraction (Acute) Acute respiratory failure with hypoxia (Acute) Subjective: breathing well, despite still being on 6 liters/nc. Vitals/I&O's: Vital Signs Temp Pulse Resp BP Pulse Ox 36.3 C L 80 16 113/79 95 12/08/17 07:59 12/08/17 11:10 12/08/17 11:04 12/08/17 07:59 12/08/17 07:59 Oxygen Flow Rate 6 Oxygen Delivery Method Nasal Cannula Weight: 138.6 kg Body Mass Index (BMI) 49.1 Intake and Output for Last 24 Hours 12/06/17 12/07/17 12/08/17 23:59 23:59 23:59 Intake Total 1200 / 1200 1800 / 1800 200 / 200 Balance 1200 / 1200 1800 / 1800 200 / 200 General: Alert, Cooperative, No apparent distress, - - sleeping, easily awoke, but dozed off several times during encounter. oxygen part way out of nares. HEENT: Atraumatic, Normocephalic Neck: No Nodes, Thyroid Normal Size and Texture Lungs: Clear to auscultation, No rhonchi, No wheeze, Diminished Cardiovascular: Regular rate, Regular Rhythm, Normal S1, Normal S2, No murmurs Abdomen: Bowel Sounds Present, Soft, Non Tender, Non-Distended, No Hepato- splenomegaly Extremities: No clubbing, No cyanosis, No Calf Tenderness, Edema Skin: No rashes, No breakdown Psych/Mental Status: Normal Affect, Appropriate Laboratory Results 12/07/17 16:27: POC Glucose 292 H 12/07/17 21:17: POC Glucose 370 H 12/08/17 05:16: WBC 10.7, RBC 5.35, Hgb 15.2 H, Hct 51.2 H, MCV 95.7, MCH 28.4, MCHC 29.7 L, RDW 15.5 H, RDW Differential 53.7 H, Plt Count 184, MPV 9.9, Immature Gran % (Auto) 0.100, Neut % (Auto) 86.4 H, Lymph % (Auto) 8.3 L, [place] % (Auto) 5.2, Eos % (Auto) 0.0, Baso % (Auto) 0.0, Absolute Neuts (auto) 9.2 H, Absolute Lymphs (auto) 0.89, Total Counted Not Reportable 12/08/17 05:16: Sodium 137, Potassium 4.7, Chloride 94 L, Carbon Dioxide 40.0 H , Anion Gap 3 L, BUN 42 H, Creatinine 1.00, Estim Creat Clear Calc 49.70, Est GFR (MDRD) Af Amer 71, Est GFR (MDRD) Non-Af 59 L, BUN/Creatinine Ratio 42.1 H, Glucose 305 H, Calcium 9.2 12/08/17 06:40: POC Glucose 260 H Current Medications Acetaminophen (Tylenol) 650 mg PO Q4H PRN PRN PRN Reason: FEVER Albuterol Sulfate (Ventolin Aerosols) 2.5 mg INHALATION Q4HWA.RT NITA Albuterol/Ipratropium (Duoneb) 3 ml INHALATION Q4H.RT [facility] Last Admin: 12/08/17 11:04 Dose: 3 ml Amlodipine Besylate (Norvasc) 5 mg PO DAILY [facility] Last Admin: 12/08/17 09:55 Dose: 5 mg Aspirin (Ecotrin) 81 mg PO DAILY [facility] Last Admin: 12/08/17 09:55 Dose: 81 mg Carvedilol (Coreg) 6.25 mg PO BID [facility] Last Admin: 12/08/17 09:55 Dose: 6.25 mg Dextrose (D50w Syringe) 0 gm IV X1 PRN; Protocol PRN Reason: Hypoglycemia Enoxaparin Sodium (Lovenox) 40 mg SC DAILY@0600 [facility] Last Admin: 12/08/17 06:43 Dose: Not Given Fluticasone Propionate (Flonase Nasal Roff) 1 spray NASAL DAILY [facility] Last Admin: 12/08/17 09:54 Dose: Not Given Furosemide (Lasix) 40 mg PO BID@1000,1800 [facility] Last Admin: 12/08/17 09:55 Dose: 40 mg Glucagon () 1 mg IM .X1 PRN PRN Reason: Hypoglycemia Guaifenesin (Mucinex) 1,200 mg PO BID [facility] Last Admin: 12/08/17 09:55 Dose: 1,200 mg Insulin Aspart (Novolog Flexpen (Bkc)) 0 units SC ACHS NITA PRN Reason: Protocol Last Admin: 12/08/17 09:59 Dose: 2 u Insulin Aspart (Novolog Flexpen (Bk)) 8 units SC TIDAC [facility] Insulin Detemir (Levemir (Bk)) 30 units SC QHS [facility] Last Admin: 12/08/17 10:00 Dose: 30 units Lisinopril (Zestril) 5 mg PO DAILY [facility] Last Admin: 12/08/17 09:55 Dose: 5 mg Magnesium Hydroxide (Milk Of Magnesia) 30 ml PO DAILY PRN PRN PRN Reason: Constipation Nutritional Formula (Lactose Free) (Glucerna Shake) 120 ml PO 4X/DAY [facility] Last Admin: 12/08/17 09:59 Dose: 120 ml Ondansetron HCl (Zofran) 4 mg IV Q8H PRN PRN PRN Reason: NAUSEA Prednisone (Prednisone) 40 mg PO DAILY@0800 [facility] Last Admin: 12/08/17 09:55 Dose: 40 mg Sodium Chloride () 5 - 15 ml IV UD PRN PRN Reason: SALINE FLUSH Last Admin: 12/07/17 06:19 Dose: 10 ml Spironolactone (Aldactone) 25 mg PO DAILY [facility] Last Admin: 12/08/17 09:55 Dose: 25 mg Assessment/Plan Active and Suspected Problems (Last Reviewed 09/20/17 @ 11:56 by Luis Leone MD) Heart failure with preserved ejection fraction (Acute) Acute respiratory failure with hypoxia (Acute) 1. acute hypoxic resp failure: * essentially unchanged * suspect d/t CHF + pulm HTN +/- OHS +/- ZA, doubt pneumonia * dc abx * CXR shows improved aeration * no obvious COPD, change steroid to prednisone 40 mg through 12/12 * still on 6 liters, but satting well. I advised RN to wean as tolerated to keep sats at 90+. * would like to see pt requiring less oxygen before discharge. 2. HFpEF * EF 60% from [facility] 06/12/16 * Resume oral lasix for now (may change to IV, if worsened CHF on CXR) * start low dose jamie 3. pulmonary hypertension * likely combo of group 2 and 3 * outpt PSG * treat the underlying processes 4. DM2, uncontrolled * exacerbated by steroids * monitor w steroid deescalation * increased levemir from 20 to 30, scheduled log 5. DVT proph: LMWH. 6. disposition: to home once oxygen requires can be sustain with 5 or less liters/min. hopefully 12/09. Code Visit Inpatient E&M: 12715 Subs Hosp L2
--- NOTE | 2017-12-08 13:09 | ECHOD_ITS ---
Reason For Study: CHF Procedure This was a 2D Doppler, Color Flow transthoracic echocardiogram. The exam was of fair technical quality due to body habitus. Exam performed portable in patient room. Left Ventricle Normal LV size. D shaped septum in diastole. The estimated ejection fraction is 55 %. No evidence for diastolic dysfunction. No regional wall motion abnormalities noted. Right Ventricle Mildly dilated right ventricle. Mild global right ventricular systolic dysfunction. Atria Normal left atrium. Normal right atrium. Mitral Valve Normal mitral valve. Mild (1+) eccentric mitral valve insufficiency. Tricuspid Valve Normal tricuspid valve. Moderate (2+) tricuspid valve insufficiency. Pulmonary artery systolic pressure is 51 mmHg. Moderate pulmonary hypertension. Aortic Valve The aortic valve is not well visualized. Pulmonic Valve The pulmonic valve is not well visualized. Great Vessels Normal aortic root. The pulmonary artery is normal size. and partially collapses. Pericardium/Pleural No pericardial effusion. Medication Definity deferred due to elevated PAP. MMode/2D Measurements & Calculations LVIDd: 4.5 cm IVSd: 0.84 cm Ao root diam: 3.1 cm LVIDs: 3.3 cm LVPWd: 0.88 cm LA dimension: 4.7 cm RVDd: 4.3 cm FS: 26.0 % LAV(MOD-bp): 55.0 ml EDV(MOD-sp4): 86.4 ml EDV(MOD-sp2): 111.4 ml LAV(MOD-bp) Indexed: 23.0 ml/m2 ESV(MOD-sp4): 42.8 ml EF(MOD-sp2): 60.1 % LAV(MOD-sp2): 45.0 ml EF(MOD-sp4): 50.5 % LAV(MOD-sp4): 58.1 ml SV(MOD-sp4): 43.6 ml SV(MOD-sp2): 66.9 ml LA A4 area: 20.9 cm2 RA A4 area: 18.7 cm2 Doppler Measurements & Calculations MV E max gael: 92.9 cm/sec Ao V2 max: 166.3 cm/sec LV V1 max: 132.4 cm/sec MV A max gael: 88.8 cm/sec Ao max P.1 mmHg LV V1 max P.0 mmHg MV E/A: 1.0 PA V2 max: 132.8 cm/sec PI end-d gael: 194.4 cm/sec TR max gael: 335.5 cm/sec TR max P.6 mmHg Interpretation Summary No evidence for diastolic dysfunction. Normal LV size. The estimated ejection fraction is 55 %. Moderate (2+) tricuspid valve insufficiency. Moderate pulmonary hypertension. Pulmonary artery systolic pressure is 51 mmHg. Compared to prior study, there is no significant change. Ordering Physician: Perry Perez Referring Physician: RODRIGO NAVARRO Performed By: Lupe Deshpande, YANIRA, RVT
[2017-12-08 14:20] LABS: Bedside Glucose 184 mg/dL (70-110)
[2017-12-08 18:11] LABS: Bedside Glucose 262 mg/dL (70-110)
[2017-12-08 21:50] LABS: Bedside Glucose 289 mg/dL (70-110)
[2017-12-09] VITALS (14 sets, daily range): BP systolic 119–137; BP diastolic 56–84; PULSE 75–99; RESP 18–22; TEMP 36.6–37.1; O2SAT 92–93
[2017-12-09 06:14] LABS: Anion Gap 1 (5-15); BUN 47 mg/dL (7-18); BUN/Creat Ratio 47.4 RATIO (10-20); Calcium,Total 9.1 mg/dL (8.5-10.1); Chloride 93 mmol/L (98-107); Creatinine, Serum 0.99 mg/dL (0.55-1.02); EST Glomerular Filtration Rate 59 mL/min (>60); Est Glom Filt Rate - Afr Amer 71 mL/min (>60); Estimated Creatinine Clearance 50.21 ml/min; Glucose 151 mg/dL (74-106); Potassium 4.4 mmol/L (3.5-5.1); Sodium Level 139 mmol/L (136-145)
[2017-12-09] MEDS: Enoxaparin 40 MG/0.4 ML Syringe SC (06:42)
[2017-12-09 06:46] LABS: Bedside Glucose 105 mg/dL (70-110)
[2017-12-09] MEDS: Ipratropium/Albuterol Sulfate 3 ML AMPUL.NEB INHALATION ×2 (06:49→19:15)
--- NOTE | 2017-12-09 08:18 | PCM.CONS.GEN ---
Problem List (1) Acute on chronic respiratory failure with hypoxia and hypercapnia Status: Acute (2) CAP (community acquired pneumonia) Status: Acute Qualifiers: Lung location: unspecified part of lung (3) Chronic diastolic heart failure Status: Chronic (4) Diabetes Status: Chronic Qualifiers: Diabetes mellitus type: type 2 (5) HTN (hypertension) Status: Chronic Qualifiers: Hypertension type: essential hypertension Qualified Code(s): I10 - Essential (primary) hypertension (6) Hyperlipidemia Status: Chronic Qualifiers: Hyperlipidemia type: unspecified Qualified Code(s): E78.5 - Hyperlipidemia, unspecified (7) Nonrheumatic tricuspid (valve) insufficiency Status: Chronic (8) Obesity Status: Chronic Qualifiers: Obesity type: unspecified obesity type Obesity classification: unspecified obesity classification (9) Pulmonary hypertension Status: Chronic Reason for Consult Date of Consultation: 12/09/17 Reason for Consultation: Respiratory failure History of Present Illness: The patient is a 67 year old F known to the pulmonary clinic with a past medical history as below who presented to the ED on 12/03/17 with complaints of increased shortness of breath over the last 3-4 days with associated productive cough of yellow to green sputum. Patient reports she has been around her grandson who had upper respiratory symptoms. She also was diagnosed with bronchitis a few weeks ago which previously resolved. She presented then to her PCP office the day before admission was noted to have pulse ox in the 70s, she was advised to go to the ER but decided to wait a day. She was in the hospital in September for fluid volume overload and bronchitis. Initial chest x-ray 12/03 showed increasing prominence of the bilateral hilar regions, vascular versus lymphadenopathy. Mild edema with developing atelectasis or consolidation at the lung bases. EKG showed normal sinus rhythm with rate of 85 bpm. A bilateral lower extremity venous Doppler was performed secondary to asymmetric edema and erythema to the left lower extremity, this revealed a superficial venous thrombosis to the left greater saphenous vein from distal thigh to the mid calf. CT the chest was obtained and revealed a mediastinal and bilateral hilar lymphadenopathy, cardiomegaly and pulmonary vascular congestion, and possible developing right lower lobe pneumonia. Initial vital signs blood pressure 124/77, pulse 89, RR 20, 99.5?F, and 85% on 4 L of oxygen. Lab work revealed no leukocytosis, hemoglobin elevated at 16.0, INR 1.2. Chemistry remarkable for serum bicarb of 37, BUN of 21 and creatinine 0.88. Glucose was low at 49. BNP mildly elevated at 179, likely related to morbid obesity. Blood cultures were obtained and showed no growth. Respiratory panel and urine strep/Legionella were both negative. Urine culture showed mixed gram-positive organisms, likely contaminant. Patient was placed on bronchodilators and Levaquin, as well as IV Lasix 20mg BID. She was admitted to the progressive care unit for further evaluation and management. She was initially on 6 L and is currently requiring 5 L of oxygen. The patient was transitioned to oral Lasix 40 mg BID on 12/07/17 with noted minimal improvement in her breathing. Her baseline dose is 20 mg once daily. Antibiotics were discontinued and IV steroids were changed to prednisone on the . Repeat chest x-ray was obtained on 12/07 and showed improved pulmonary venous congestion and elevation of the right hemidiaphragm. Currently, the patient reports an occasional cough with yellow/green sputum production. She denies any significant wheezing. She does have persistent dyspnea on exertion with an increased oxygen requirement. She is tolerating physical therapy and is able to walk short distances. The patient has had some issues with hypoglycemia and her insulin has been adjusted. The patient had a polysomnogram 07/2016 which did not show any evidence of obstructive sleep apnea. A 6-minute walking oximetry 06/19/16 showed an oxygen requirement of 2 L pulse at rest and 4 L pulse with any ambulation. Patient reports she uses 4 L at rest as needed throughout the day as well. Pulmonary function tests were completed on 03/01/17 which demonstrated the presence of a mild restrictive ventilatory defect with a disproportionate moderate reduction in diffusion capacity. There was a partial response to aerosolized bronchodilators. Echocardiogram was done her last admission on 09/2017 and showed a preserved ejection fraction of 50%, elevated right pulmonary pressure 45 mmHg, and impaired relaxation of left ventricle. Past Medical History Past Medical History (Chronic Problems): Chronic Problems (Last Reviewed 09/20/17 @ 11:56 by Luis Leone MD) Pulmonary hypertension (Chronic) CHF (congestive heart failure) (Chronic) Diabetes (Chronic) Chronic diastolic heart failure (Chronic) Shortness of breath (Chronic) Dyspnea (Chronic) Thoracic kyphosis (Chronic) Other secondary pulmonary hypertension (Chronic) Leg edema (Chronic) Obesity (Chronic) Nonrheumatic tricuspid (valve) insufficiency (Chronic) Hypersomnia (Chronic) Body mass index (BMI) 35 or more (Chronic) HTN (hypertension) (Chronic) Hyperlipidemia (Chronic) Allergies No Known Allergies Allergy (Verified 12/03/17 18:02) Home Medications: Ambulatory Orders Medication Instructions Recorded Aspirin [Adult Low Dose Aspirin EC] 81 mg PO DAILY 06/11/16 Fluticasone 0.05% [Flonase Nasal 1 spray NASAL DAILY 06/11/16 Laie] Glimepiride [Amaryl] 4 mg PO BID 06/11/16 Ergocalciferol [Vitamin D] 50,000 unit PO TUTH 09/29/17 Albuterol IH (ProAir) [Proair Hfa 2 puff INHALATION Q6H PRN PRN #1 10/01/17 (SP)Vent Pts] inhaler amlodipine 5 mg tablet 5 mg PO QDAY #90 tab 11/04/17 carvedilol 6.25 mg tablet 6.25 mg PO BID #180 tab 11/04/17 spironolactone 25 mg tablet 25 mg PO DAILY #1 tab 11/07/17 furosemide 20 mg tablet 20 mg PO QDAY #90 tab 12/05/17 Surgical History: appendectomy, cholecystectomy, hysterectomy, - - Tonsillectomy Psychiatric History: No pertinent psych hx WAGE CONCILIATOR History: No pertinent WAGE CONCILIATOR history Lives: Spouse/ Significant Other, With Family Smoking Status: Former smoker Tobacco Use: Non-smoker Alcohol: None Drugs: None - *Family History Maternal History Items: No pertinent history Review of Systems Constitutional: Reports: Fatigue. Denies: Anorexia, Chills, Fever, Night Sweats, Malaise, Weakness, Weight Change Eyes: Denies: Vision Change HEENT: Denies: Difficulty Swallowing, Head Aches, Nasal Congestion, Sinus Congestion, Sinus Drainage, Sore Throat Cardiovascular: Reports: Edema - improved, Orthopnea. Denies: Chest Pain, Chest Pressure, Chest Tightness, Light Headedness, Palpitations, Paroxysmal Noc. Dyspnea, Syncope Respiratory: Reports: Cough, Shortness of breath upon exertion, Sputum production - occas yellow/green. Denies: Hemoptysis, Shortness of breath at rest, Wheezing Gastrointestinal: Denies: Abdominal Pain, Constipation, Diarrhea, Dyspepsia, Hematemesis, Hematochezia, Nausea, Melena, Vomiting Genitourinary: Denies: Dysuria, Frequency, Hematuria, Nocturia, Retention Gynecological: Denies: Breast symptoms Musculoskeletal: Reports: Leg Pain - mild cramping LLE Skin: Denies: Rash, Wounds Neurological: Denies: Balance problems, Change in Speech, Confusion, Focal weakness, Tremor, Seizures Psychiatric: Reports: Depression. Denies: Anxiety, Suicidal Ideations Endocrine: Denies: Polydipsia, Polyuria Hematologic/ Lymphatic: Reports: Hx of blood clot. Denies: Adenopathy, Anemia, Easy Bruising, Easy Bleeding, Purpura Patient Problems: Active and Suspected Problems (Last Reviewed 09/20/17 @ 11:56 by Luis Leone MD) Acute on chronic respiratory failure with hypoxia and hypercapnia (Acute) Subjective: The patient was seen and examined. Objective: Clinical Impression(s) from Imaging Studies Chest X-Ray 12/03/17 18:36 IMPRESSION: Increasing prominence of the bilateral hilar regions, may be vascular or lymphadenopathy. Mild edema with developing atelectasis or consolidation at the lung bases. Follow-up with additional lateral view is recommended. at 1934 Reported and signed by: Mague Hill MD Electronically Signed: Mague Hill MD at 18:32 EST Tel , Service support , Venous Duplex 12/03/17 18:48 IMPRESSION: Superficial venous thrombosis involving the left greater saphenous vein from the distal thigh to the mid calf. Deep venous system is patent. at 2019 Reported and signed by: Mague Hill MD Electronically Signed: Mague Hill MD at 19:17 EST Tel , Service support , Chest CT 12/03/17 21:44 IMPRESSION: Mediastinal and bilateral hilar lymphadenopathy. Cardiomegaly and pulmonary vascular congestion. Developing right lower lobe pneumonia. at 2315 Reported and signed by: Mague Hill MD Electronically Signed: Mague Hill MD at 22:13 EST Tel , Service support , Chest X-Ray 12/07/17 08:24 IMPRESSION: Elevation of the right hemidiaphragm. Improved pulmonary venous congestion. Electronically Signed: Chente De La Cruz MD at 10:41 EST Tel , Service support , - Physical Exam General: Alert, Oriented x3, Cooperative, No apparent distress, - - No conversational dyspnea HEENT: Atraumatic, PERRLA, Normocephalic Oral: Moist Mucosa, No Gingival or Mucosal Lesions/ Ulcerations Neck: Supple, No JVD, No Nodes, Trachea Midline Lungs: - - Globally diminished, no appreciable rhonchi, wheezes, or rales. Symmetric expansion, no dullness to percussion Cardiovascular: Regular rate, Regular Rhythm, Normal S1, Normal S2, No murmurs, No rub noted, No Gallop Abdomen: Bowel Sounds Present, Soft, Non Tender, Non-Distended, Obese Extremities: No clubbing, No cyanosis, Capillary Refill Less than 3 Seconds, Edema - Trace bilateral lower extremities, Peripheral Pulses Normal, Tenderness - Left calf, mild Skin: No rashes, No breakdown Musculoskeletal: No Tenderness to Palpation of Joints or Extremities Lymphatic: No Cervical, Supraclavicular, or Inguinal Adenopathy Neurological: Cranial nerves II-XII grossly intact, Neuro grossly intact, Motor Exam 5/5 strength throughout Psych/Mental Status: Alert and oriented to time, place, person, mood and affect Vital Signs Temp Pulse Resp BP Pulse Ox 97.9 F 82 18 119/60 92 12/09/17 08:04 12/09/17 08:04 12/09/17 08:05 12/09/17 08:04 12/09/17 08:04 Oxygen Flow Rate 5 Oxygen Delivery Method Nasal Cannula Weight: 304 lb 14.389 oz Body Mass Index (BMI) 49.1 Intake and Output for Last 24 Hours 12/07/17 12/08/17 12/09/17 23:59 23:59 23:59 Intake Total 1800 / 1800 200 / 200 Balance 1800 / 1800 200 / 200 Microbiology Past 72 Hours 12/03/17 21:15 Blood Culture - Final Blood Culture (Wb) - Right Forearm No growth in 5 days. Laboratory Tests Past 24 Hrs 12/09/17 05:00 Sodium 139 Potassium 4.4 Chloride 93 L Carbon Dioxide 45.0 H Anion Gap 1 L BUN 47 H Creatinine 0.99 Estim Creat Clear Calc 50.21 Est GFR (MDRD) Af Amer 71 Est GFR (MDRD) Non-Af 59 L BUN/Creatinine Ratio 47.4 H Glucose 151 H Calcium 9.1 POC Glucose 12/09/17 12/08/17 12/08/17 06:39 21:43 17:58 POC Glucose 105 289 H 262 H 12/08/17 14:09 POC Glucose 184 H Assessment/Plan Active and Suspected Problems (Last Reviewed 09/20/17 @ 11:56 by Luis Leone MD) Acute on chronic respiratory failure with hypoxia and hypercapnia (Acute) RECOMMENDATIONS 1. Wean oxygen supplementation to keep saturations greater than 88% 2. Encourage incentive spirometer/aggressive pulmonary toileting 3. Increase activity as tolerated, ambulate and up to chair 4. Continue bronchodilators 5. Continue oral steroids with taper at discharge 6. Cardiology consult pending 7. Await repeat echocardiogram 8. Continue diuresis 9. Ambulatory pulse ox prior to discharge 10. Patient can follow-up in the pulmonary clinic in 2 weeks with [facility] IMPRESSIONS 1. Acute on chronic hypoxic and hypercarbic respiratory failure/questionable pneumonia Etiology unclear, likely multifactorial given history of heart failure and pulmonary hypertension. Patient was admitted on the with no significant improvement. Last echo showed preserved ejection fraction 50% and RVSP of 45 mmHg. A repeat echocardiogram has been ordered. Cardiology consult is pending. Chest CT showed mediastinal and bilateral hilar lymphadenopathy with cardiomegaly and pulmonary vascular congestion. There was a questionable right lower lobe pneumonia. Patient did have sick contact with grandson with URI symptoms. She has recurrent bronchitis. Infectious workup has been negative to date. Patient has been afebrile with no leukocytosis the entire admission. Suspect increased oxygen requirements and chest imaging more related to fluid volume overload than infectious process. Also possible atelectasis/increased oxygen requirements related to morbid obesity hypoventilation syndrome. Continue bronchodilators and oral steroids, increase activity as tolerated and up to chair. Await echo and cardiology consult. Aggressive pulmonary toileting. 2. Acute on chronic diastolic congestive heart failure BNP not elevated. She is up +6300 mL this admission. Her oxygen requirements have not returned to her baseline of 2-4 L. The patient is currently being diuresed with oral Lasix at higher dose than outpatient dose of 20mg daily. Repeat echo and cardiology consult is pending. The patient follows with Dr. Morales as an outpatient. 3. Type 2 diabetes mellitus/morbid obesity/pulmonary hypertension/hypertension/hyperlipidemia Complicates care, management, recovery, and prognosis. Blood sugars have been labile, insulin being adjusted secondary to hypoglycemia and steroid use. Thank you for the opportunity to participate in this patient's care, please do not hesitate to contact us with any further questions or concerns. This note was generated with [employer] dictation software. It may contain incorrect words, spelling, and punctuation that were not noted in checking the note before signing.
--- NOTE | 2017-12-09 09:11 | CON.PCM_ITS ---
Problem List (1) Acute on chronic respiratory failure with hypoxia and hypercapnia Status: Acute (2) CAP (community acquired pneumonia) Status: Acute Qualifiers: Lung location: unspecified part of lung (3) Chronic diastolic heart failure Status: Chronic (4) Diabetes Status: Chronic Qualifiers: Diabetes mellitus type: type 2 (5) HTN (hypertension) Status: Chronic Qualifiers: Hypertension type: essential hypertension Qualified Code(s): I10 - Essential (primary) hypertension (6) Hyperlipidemia Status: Chronic Qualifiers: Hyperlipidemia type: unspecified Qualified Code(s): E78.5 - Hyperlipidemia , unspecified (7) Nonrheumatic tricuspid (valve) insufficiency Status: Chronic (8) Obesity Status: Chronic Qualifiers: Obesity type: unspecified obesity type Obesity classification: unspecified obesity classification (9) Pulmonary hypertension Status: Chronic Reason for Consult Date of Consultation: 12/09/17 Reason for Consultation: Respiratory failure History of Present Illness: The patient is a 67 year old F known to the pulmonary clinic with a past medical history as below who presented to the ED on 12/03/17 with complaints of increased shortness of breath over the last 3-4 days with associated productive cough of yellow to green sputum. Patient reports she has been around her grandson who had upper respiratory symptoms. She also was diagnosed with bronchitis a few weeks ago which previously resolved. She presented then to her PCP office the day before admission was noted to have pulse ox in the 70s, she was advised to go to the ER but decided to wait a day. She was in the hospital in September for fluid volume overload and bronchitis. Initial chest x- ray 12/03 showed increasing prominence of the bilateral hilar regions, vascular versus lymphadenopathy. Mild edema with developing atelectasis or consolidation at the lung bases. EKG showed normal sinus rhythm with rate of 85 bpm. A bilateral lower extremity venous Doppler was performed secondary to asymmetric edema and erythema to the left lower extremity, this revealed a superficial venous thrombosis to the left greater saphenous vein from distal thigh to the mid calf. CT the chest was obtained and revealed a mediastinal and bilateral hilar lymphadenopathy, cardiomegaly and pulmonary vascular congestion, and possible developing right lower lobe pneumonia. Initial vital signs blood pressure 124/77, pulse 89, RR 20, 99.5?F, and 85% on 4 L of oxygen. Lab work revealed no leukocytosis, hemoglobin elevated at 16.0, INR 1.2. Chemistry remarkable for serum bicarb of 37, BUN of 21 and creatinine 0.88. Glucose was low at 49. BNP mildly elevated at 179, likely related to morbid obesity. Blood cultures were obtained and showed no growth. Respiratory panel and urine strep/Legionella were both negative. Urine culture showed mixed gram-positive organisms, likely contaminant. Patient was placed on bronchodilators and Levaquin, as well as IV Lasix 20mg BID. She was admitted to the progressive care unit for further evaluation and management. She was initially on 6 L and is currently requiring 5 L of oxygen. The patient was transitioned to oral Lasix 40 mg BID on 12/07/17 with noted minimal improvement in her breathing. Her baseline dose is 20 mg once daily. Antibiotics were discontinued and IV steroids were changed to prednisone on the . Repeat chest x-ray was obtained on 12/07 and showed improved pulmonary venous congestion and elevation of the right hemidiaphragm. Currently, the patient reports an occasional cough with yellow/green sputum production. She denies any significant wheezing. She does have persistent dyspnea on exertion with an increased oxygen requirement. She is tolerating physical therapy and is able to walk short distances. The patient has had some issues with hypoglycemia and her insulin has been adjusted. The patient had a polysomnogram 07/2016 which did not show any evidence of obstructive sleep apnea. A 6-minute walking oximetry 06/19/16 showed an oxygen requirement of 2 L pulse at rest and 4 L pulse with any ambulation. Patient reports she uses 4 L at rest as needed throughout the day as well. Pulmonary function tests were completed on 03/01/17 which demonstrated the presence of a mild restrictive ventilatory defect with a disproportionate moderate reduction in diffusion capacity. There was a partial response to aerosolized bronchodilators. Echocardiogram was done her last admission on 09/2017 and showed a preserved ejection fraction of 50%, elevated right pulmonary pressure 45 mmHg, and impaired relaxation of left ventricle. Past Medical History Past Medical History (Chronic Problems): Chronic Problems (Last Reviewed 09/20/17 @ 11:56 by Luis Leone MD) Pulmonary hypertension (Chronic) CHF (congestive heart failure) (Chronic) Diabetes (Chronic) Chronic diastolic heart failure (Chronic) Shortness of breath (Chronic) Dyspnea (Chronic) Thoracic kyphosis (Chronic) Other secondary pulmonary hypertension (Chronic) Leg edema (Chronic) Obesity (Chronic) Nonrheumatic tricuspid (valve) insufficiency (Chronic) Hypersomnia (Chronic) Body mass index (BMI) 35 or more (Chronic) HTN (hypertension) (Chronic) Hyperlipidemia (Chronic) Allergies No Known Allergies Allergy (Verified 12/03/17 18:02) Home Medications: Ambulatory Orders Medication Instructions Recorded Aspirin [Adult Low Dose Aspirin EC] 81 mg PO DAILY 06/11/16 Fluticasone 0.05% [Flonase Nasal 1 spray NASAL DAILY 06/11/16 [place]] Glimepiride [Amaryl] 4 mg PO BID 06/11/16 Ergocalciferol [Vitamin D] 50,000 unit PO TUTH 09/29/17 Albuterol IH (ProAir) [Proair Hfa 2 puff INHALATION Q6H PRN PRN #1 10/01/17 (SP)Vent Pts] inhaler amlodipine 5 mg tablet 5 mg PO QDAY #90 tab 11/04/17 carvedilol 6.25 mg tablet 6.25 mg PO BID #180 tab 11/04/17 spironolactone 25 mg tablet 25 mg PO DAILY #1 tab 11/07/17 furosemide 20 mg tablet 20 mg PO QDAY #90 tab 12/05/17 Surgical History: appendectomy, cholecystectomy, hysterectomy, - - Tonsillectomy Psychiatric History: No pertinent psych hx LEATHER COLORER History: No pertinent LEATHER COLORER history Lives: Spouse/ Significant Other, With Family Smoking Status: Former smoker Tobacco Use: Non-smoker Alcohol: None Drugs: None - *Family History Maternal History Items: No pertinent history Review of Systems Constitutional: Reports: Fatigue. Denies: Anorexia, Chills, Fever, Night Sweats , Malaise, Weakness, Weight Change Eyes: Denies: Vision Change HEENT: Denies: Difficulty Swallowing, Head Aches, Nasal Congestion, Sinus Congestion, Sinus Drainage, Sore Throat Cardiovascular: Reports: Edema - improved, Orthopnea. Denies: Chest Pain, Chest Pressure, Chest Tightness, Light Headedness, Palpitations, Paroxysmal Noc. Dyspnea, Syncope Respiratory: Reports: Cough, Shortness of breath upon exertion, Sputum production - occas yellow/green. Denies: Hemoptysis, Shortness of breath at rest, Wheezing Gastrointestinal: Denies: Abdominal Pain, Constipation, Diarrhea, Dyspepsia, Hematemesis, Hematochezia, Nausea, Melena, Vomiting Genitourinary: Denies: Dysuria, Frequency, Hematuria, Nocturia, Retention Gynecological: Denies: Breast symptoms Musculoskeletal: Reports: Leg Pain - mild cramping LLE Skin: Denies: Rash, Wounds Neurological: Denies: Balance problems, Change in Speech, Confusion, Focal weakness, Tremor, Seizures Psychiatric: Reports: Depression. Denies: Anxiety, Suicidal Ideations Endocrine: Denies: Polydipsia, Polyuria Hematologic/ Lymphatic: Reports: Hx of blood clot. Denies: Adenopathy, Anemia, Easy Bruising, Easy Bleeding, Purpura Patient Problems: Active and Suspected Problems (Last Reviewed 09/20/17 @ 11:56 by Luis Leone MD) Acute on chronic respiratory failure with hypoxia and hypercapnia (Acute) Subjective: The patient was seen and examined. Objective: Clinical Impression(s) from Imaging Studies Chest X-Ray 12/03/17 18:36 IMPRESSION: Increasing prominence of the bilateral hilar regions, may be vascular or lymphadenopathy. Mild edema with developing atelectasis or consolidation at the lung bases. Follow-up with additional lateral view is recommended. at 1934 Reported and signed by: Mague Hill MD Electronically Signed: Mague Hill MD at 18:32 EST Tel , Service support , Venous Duplex 12/03/17 18:48 IMPRESSION: Superficial venous thrombosis involving the left greater saphenous vein from the distal thigh to the mid calf. Deep venous system is patent. at 2019 Reported and signed by: Mague Hill MD Electronically Signed: Mague Hill MD at 19:17 EST Tel , Service support , Chest CT 12/03/17 21:44 IMPRESSION: Mediastinal and bilateral hilar lymphadenopathy. Cardiomegaly and pulmonary vascular congestion. Developing right lower lobe pneumonia. at 2315 Reported and signed by: Mague Hill MD Electronically Signed: Mague Hill MD at 22:13 EST Tel , Service support , Chest X-Ray 12/07/17 08:24 IMPRESSION: Elevation of the right hemidiaphragm. Improved pulmonary venous congestion. Electronically Signed: Chente De La Cruz MD at 10:41 EST Tel , Service support , - Physical Exam General: Alert, Oriented x3, Cooperative, No apparent distress, - - No conversational dyspnea HEENT: Atraumatic, PERRLA, Normocephalic Oral: Moist Mucosa, No Gingival or Mucosal Lesions/ Ulcerations Neck: Supple, No JVD, No Nodes, Trachea Midline Lungs: - - Globally diminished, no appreciable rhonchi, wheezes, or rales. Symmetric expansion, no dullness to percussion Cardiovascular: Regular rate, Regular Rhythm, Normal S1, Normal S2, No murmurs, No rub noted, No Gallop Abdomen: Bowel Sounds Present, Soft, Non Tender, Non-Distended, Obese Extremities: No clubbing, No cyanosis, Capillary Refill Less than 3 Seconds, Edema - Trace bilateral lower extremities, Peripheral Pulses Normal, Tenderness - Left calf, mild Skin: No rashes, No breakdown Musculoskeletal: No Tenderness to Palpation of Joints or Extremities Lymphatic: No Cervical, Supraclavicular, or Inguinal Adenopathy Neurological: Cranial nerves II-XII grossly intact, Neuro grossly intact, Motor Exam 5/5 strength throughout Psych/Mental Status: Alert and oriented to time, place, person, mood and affect Vital Signs Temp Pulse Resp BP Pulse Ox 97.9 F 82 18 119/60 92 12/09/17 08:04 12/09/17 08:04 12/09/17 08:05 12/09/17 08:04 12/09/17 08:04 Oxygen Flow Rate 5 Oxygen Delivery Method Nasal Cannula Weight: 304 lb 14.389 oz Body Mass Index (BMI) 49.1 Intake and Output for Last 24 Hours 12/07/17 12/08/17 12/09/17 23:59 23:59 23:59 Intake Total 1800 / 1800 200 / 200 Balance 1800 / 1800 200 / 200 Microbiology Past 72 Hours 12/03/17 21:15 Blood Culture - Final Blood Culture (Wb) - Right Forearm No growth in 5 days. Laboratory Tests Past 24 Hrs 12/09/17 05:00 Sodium 139 Potassium 4.4 Chloride 93 L Carbon Dioxide 45.0 H Anion Gap 1 L BUN 47 H Creatinine 0.99 Estim Creat Clear Calc 50.21 Est GFR (MDRD) Af Amer 71 Est GFR (MDRD) Non-Af 59 L BUN/Creatinine Ratio 47.4 H Glucose 151 H Calcium 9.1 POC Glucose 12/09/17 12/08/17 12/08/17 06:39 21:43 17:58 POC Glucose 105 289 H 262 H 12/08/17 14:09 POC Glucose 184 H Assessment/Plan Active and Suspected Problems (Last Reviewed 09/20/17 @ 11:56 by Luis Leoen MD) Acute on chronic respiratory failure with hypoxia and hypercapnia (Acute) RECOMMENDATIONS 1. Wean oxygen supplementation to keep saturations greater than 88% 2. Encourage incentive spirometer/aggressive pulmonary toileting 3. Increase activity as tolerated, ambulate and up to chair 4. Continue bronchodilators 5. Continue oral steroids with taper at discharge 6. Cardiology consult pending 7. Await repeat echocardiogram 8. Continue diuresis 9. Ambulatory pulse ox prior to discharge 10. Patient can follow-up in the pulmonary clinic in 2 weeks with [employer] IMPRESSIONS 1. Acute on chronic hypoxic and hypercarbic respiratory failure/questionable pneumonia Etiology unclear, likely multifactorial given history of heart failure and pulmonary hypertension. Patient was admitted on the with no significant improvement. Last echo showed preserved ejection fraction 50% and RVSP of 45 mmHg. A repeat echocardiogram has been ordered. Cardiology consult is pending. Chest CT showed mediastinal and bilateral hilar lymphadenopathy with cardiomegaly and pulmonary vascular congestion. There was a questionable right lower lobe pneumonia. Patient did have sick contact with grandson with URI symptoms. She has recurrent bronchitis. Infectious workup has been negative to date. Patient has been afebrile with no leukocytosis the entire admission. Suspect increased oxygen requirements and chest imaging more related to fluid volume overload than infectious process. Also possible atelectasis/increased oxygen requirements related to morbid obesity hypoventilation syndrome. Continue bronchodilators and oral steroids, increase activity as tolerated and up to chair. Await echo and cardiology consult. Aggressive pulmonary toileting. 2. Acute on chronic diastolic congestive heart failure BNP not elevated. She is up +6300 mL this admission. Her oxygen requirements have not returned to her baseline of 2-4 L. The patient is currently being diuresed with oral Lasix at higher dose than outpatient dose of 20mg daily. Repeat echo and cardiology consult is pending. The patient follows with Dr. Morales as an outpatient. 3. Type 2 diabetes mellitus/morbid obesity/pulmonary hypertension/hypertension/ hyperlipidemia Complicates care, management, recovery, and prognosis. Blood sugars have been labile, insulin being adjusted secondary to hypoglycemia and steroid use. Thank you for the opportunity to participate in this patient's care, please do not hesitate to contact us with any further questions or concerns. This note was generated with [employer] dictation software. It may contain incorrect words, spelling, and punctuation that were not noted in checking the note before signing.
[2017-12-09] MEDS: Lisinopril 5 MG Tablet PO (09:49)
[2017-12-09] MEDS: Furosemide 40 MG Tablet PO ×2 (09:49→17:43)
[2017-12-09] MEDS: amLODIPine 5 MG Tablet PO (09:49)
[2017-12-09] MEDS: Carvedilol 6.25 MG Tablet PO ×2 (09:49→21:37)
[2017-12-09] MEDS: Aspirin E.C. 81 MG Tablet PO (09:49)
[2017-12-09] MEDS: guaiFENesin 1,200 MG Tablet 1200 MG PO ×2 (09:49→21:37)
[2017-12-09] MEDS: Spironolactone 25 MG Tablet PO (09:49)
[2017-12-09 11:26] LABS: Bedside Glucose 139 mg/dL (70-110)
--- NOTE | 2017-12-09 13:02 | PN_ITS ---
Patient Problems: Active and Suspected Problems (Last Reviewed 09/20/17 @ 11:56 by Luis Leone MD) Acute on chronic respiratory failure with hypoxia and hypercapnia (Acute) Subjective: Pt complains of feeling fatigued and that she is still requiring much more oxygen than she is supposed to be on at home. She is supposed to be on 2 lpm at night and prn but bumped herself up to 4 lpm recently. She is on 5 now and stable. No CP. Productive cough with yellow mucus. No fever or chills. She had a sleep study and reports that she had no sleep apnea at the time. She also denies any hx of COPD or asthma. She does not smoke. - Physical Exam General: Alert, Oriented x3, Cooperative HEENT: Atraumatic, PERRLA, EOMI, Normocephalic Neck: Supple, No JVD, Negative Carotid Bruits Lungs: Clear to auscultation, Diminished Cardiovascular: Regular rate, No murmurs Abdomen: Bowel Sounds Present, Soft, Non Tender Extremities: No edema, Capillary Refill Less than 3 Seconds Skin: No rashes, No breakdown Musculoskeletal: No Tenderness to Palpation of Joints or Extremities Neurological: Cranial nerves II-XII grossly intact Psych/Mental Status: Normal Affect, Appropriate, Alert and oriented to time, place, person, mood and affect Vital Signs Temp Pulse Resp BP Pulse Ox 97.9 F 87 18 119/60 92 12/09/17 08:04 12/09/17 11:14 12/09/17 08:05 12/09/17 08:04 12/09/17 08:04 Oxygen Flow Rate 5 Oxygen Delivery Method Nasal Cannula Weight: 138.3 kg Body Mass Index (BMI) 49.1 Intake and Output for Last 24 Hours 12/07/17 12/08/17 12/09/17 23:59 23:59 23:59 Intake Total 1800 / 1800 200 / 200 Balance 1800 / 1800 200 / 200 Microbiology Past 72 Hours 12/03/17 21:15 Blood Culture - Final Blood Culture (Wb) - Right Forearm No growth in 5 days. Laboratory Tests Past 24 Hrs 12/09/17 05:00 Sodium 139 Potassium 4.4 Chloride 93 L Carbon Dioxide 45.0 H Anion Gap 1 L BUN 47 H Creatinine 0.99 Estim Creat Clear Calc 50.21 Est GFR (MDRD) Af Amer 71 Est GFR (MDRD) Non-Af 59 L BUN/Creatinine Ratio 47.4 H Glucose 151 H Calcium 9.1 POC Glucose 12/09/17 12/09/17 12/08/17 11:17 06:39 21:43 POC Glucose 139 H 105 289 H 12/08/17 12/08/17 17:58 14:09 POC Glucose 262 H 184 H Assessment/Plan Active and Suspected Problems (Last Reviewed 09/20/17 @ 11:56 by Luis Leone MD) Acute on chronic respiratory failure with hypoxia and hypercapnia (Acute) 1. Acute on chronic hypoxic respiratory failure 2/2 Acute on chronic diastolic CHF, complicated by Pulmonary HTN - pulm following. Suspsect etiology 2/2 heart failure and pulmonary htn. Denies hx of COPD and ZA. Echo shows no significant change since prior - EF 55%, 2+ TVI, moderate pulm htn with PASP 51 mmHg. cardio consult pending - she is a pt of Dr. Morales. She has requested a consult. Baseline O2 is 2lpm at night and PRN, still on 5 lpm. Continue lasix , prednisone taper, bronchodilators, spirometry. Pt is also on norvasc, coreg, aldactone, jamie-inhibitor already. Latest CXR showed improved pulmonary venous congestion. 2. DMt2 - continue current therapy. Amaryl held. Check A1C. 3. Morbid obesity - possibly OHS. DVT ppx: lovenox DC planning: cardiology consult pending. Continue to attempt to wean O2. This patient was seen by Levon Gaffney PA-C under the supervision of Doctor Cárdenas.
[2017-12-09 13:36] LABS: Bedside Glucose 155 mg/dL (70-110)
[2017-12-09 13:45] LABS: Hemoglobin A1c 6.7 % (4.2-6.3)
--- NOTE | 2017-12-09 14:10 | CT_ITS ---
STUDY: CTA CHEST REASON FOR EXAM: Female, 67 years old. Hypoxia RADIATION DOSAGE (If Supplied By Facility): CTDIvol = ( 18.39 ) mGy, DLP = ( 684.83 ) mGycm TECHNIQUE: The examination was performed with the intravenous administration of 100 ml of Isovue 370 contrast material. Post-processing of the angiographic images was performed, with multiplanar reformation and 3D reconstruction. Individualized dose optimization techniques were used for this CT. COMPARISON: Chest radiograph dated December 07, 2017; CT chest without contrast dated December 03, 2017 FINDINGS: Normal enhancement of the main pulmonary artery and right and left pulmonary arteries without filling defects. No filling defects are evident in the peripheral branches. The thoracic aorta is unremarkable. There is no demonstrated aortic dissection. The heart is normal in size. The mediastinum is unremarkable. The hilar regions are unremarkable. The airways are unremarkable. There are minimal increased markings in both lower lobes dependently. There are no focal airspace opacities. There is no demonstrated pleural abnormality. The soft tissues are unremarkable. There are mild degenerative changes in the visualized spine. There are no significant abnormalities in the visualized upper abdomen. CT/CTA Chest W/WO Contrast IMPRESSION: There is no evidence of pulmonary embolism, aortic aneurysm or aortic dissection. The study is limited by breathing motion artifact which limits evaluation of the peripheral branches. There is minimal dependent atelectasis in both lower lobes. The previously seen consolidation in the superior segment of the right lower lobe is no longer present. There is no pleural effusion or significant lymphadenopathy. Electronically Signed: Melissa Werner MD at 17:01 EST Tel Direct: [phone], Service support ,
[2017-12-09 15:17] LABS: Allen Test POS; Blood Gas Specimen Type ART; O2 Delivery Device Nasal Can; SITE R RADIAL
[2017-12-09 15:18] LABS: Bicarbonate 50.9 mmol/L (22-26); PO2 80 mmHG (75-100); Time Given 1417; pCO2 77.4 mmHg (35-45); pH 7.43 (7.35-7.45)
[2017-12-09 15:19] LABS: Base Excess 27 mmol/L (-2 to +2); SO2 95 % (95-99); Total Carbon Dioxide > 50 mmol/L
[2017-12-09] MEDS: 0.9% Saline Lock 10 ML Syringe IV (17:42)
[2017-12-09 17:51] LABS: Bedside Glucose 204 mg/dL (70-110)
--- NOTE | 2017-12-09 18:06 | CON.PCM_ITS ---
Reason for Consult Date of Consultation: 12/09/17 Reason for Consultation: Elevation of cardiac status. History of Present Illness: The patient is a 67 year old F recently seen by my colleague for preoperative cardiac evaluation. She has a history of moderate pulmonary hypertension and no significant obstructive coronary disease following a cardiac catheterization performed in May 2016. [] The patient is a 67-year-old female who initially presented to the emergency department on December 03 with complaints of shortness of breath and fatigue. The patient does have underlying chronic hypoxemic respiratory failure with a baseline supplemental oxygen requirement of 2 L/min at rest and 4 L/min with exertion. The patient does have a known underlying restrictive ventilatory defect with a disproportionate reduction in diffusing capacity. Her last surface echocardiogram revealed an ejection fraction of 55% with mild global RV systolic dysfunction and a pulmonary artery systolic pressure estimated to be [address] chest completed on December 03 revealed evidence of both mediastinal and hilar lymphadenopathy and a possible right lower lobe infiltrate. As being in the hospital she has been diuresed and it appears that she has been doing better. Cardiology was called to see her to optimize her medical therapy. She does not have any significant complaints at this time. She says that her pedal edema has improved significantly. She denies any palpitations near syncope or syncope. Past Medical History Allergies/Adverse Reactions: Allergies No Known Allergies Allergy (Verified 12/03/17 18:02) Home Medications: Ambulatory Orders Medication Instructions Recorded Aspirin [Adult Low Dose Aspirin EC] 81 mg PO DAILY 06/11/16 Fluticasone 0.05% [Flonase Nasal 1 spray NASAL DAILY 06/11/16 Browns] Glimepiride [Amaryl] 4 mg PO BID 06/11/16 Ergocalciferol [Vitamin D] 50,000 unit PO TUTH 09/29/17 Albuterol IH (ProAir) [Proair Hfa 2 puff INHALATION Q6H PRN PRN #1 10/01/17 (SP)Vent Pts] inhaler amlodipine 5 mg tablet 5 mg PO QDAY #90 tab 11/04/17 carvedilol 6.25 mg tablet 6.25 mg PO BID #180 tab 11/04/17 spironolactone 25 mg tablet 25 mg PO DAILY #1 tab 11/07/17 furosemide 20 mg tablet 20 mg PO QDAY #90 tab 12/05/17 Past Medical History (Chronic Problems): Chronic Problems (Last Reviewed 09/20/17 @ 11:56 by Luis Leone MD) Pulmonary hypertension (Chronic) CHF (congestive heart failure) (Chronic) Diabetes (Chronic) Chronic diastolic heart failure (Chronic) Shortness of breath (Chronic) Dyspnea (Chronic) Thoracic kyphosis (Chronic) Other secondary pulmonary hypertension (Chronic) Leg edema (Chronic) Obesity (Chronic) Nonrheumatic tricuspid (valve) insufficiency (Chronic) Hypersomnia (Chronic) Body mass index (BMI) 35 or more (Chronic) HTN (hypertension) (Chronic) Hyperlipidemia (Chronic) Surgical History: appendectomy, cholecystectomy, hysterectomy, - - Tonsillectomy Psychiatric History: No pertinent psych hx [place] [facility] History: No pertinent [place] history - *Family History Maternal Family History: Family History (Last Reviewed 09/20/17 @ 11:56 by Luis Leone MD) Mother CVA (cerebral vascular accident) Grandfather CAD (coronary artery disease) History Items: No pertinent history Lives: Spouse/ Significant Other, With Family Smoking Status: Former smoker Tobacco Use: Non-smoker Alcohol: None Drugs: None Review of Systems - Review of Systems General: Denies: Fever, Night Sweats, Fatigue Cardiovascular: Reports: Shortness of Breath, Shortness of Breath at Rest, Peripheral Edema. Denies: Chest Discomfort, Orthopnea, PND, Palpitations, Lightheadedness, Dizziness, Near Syncope, Syncope Respiratory: Denies: Cough, Sputum Production, Hemoptysis Gastrointestinal: Denies: Hematemesis, Hematochezia, Melena Genitourinary: Denies: Dysuria, Hematuria Skin: Denies: Rash Subjectve: pleasant obese lady in no apparent distress. Objective: Vital Signs Temp Pulse Resp BP Pulse Ox 98.2 F 80 18 137/84 H 92 12/09/17 14:22 12/09/17 15:03 12/09/17 14:22 12/09/17 14:22 12/09/17 14:22 Oxygen Flow Rate 5 Oxygen Delivery Method Nasal Cannula Weight: 304 lb 14.389 oz Body Mass Index (BMI) 49.1 Intake and Output for Last 24 Hours 12/07/17 12/08/17 12/09/17 23:59 23:59 23:59 Intake Total 1800 / 1800 200 / 200 950 / 950 Balance 1800 / 1800 200 / 200 950 / 950 General: Awake, Alert, Oriented x 3, Obese HEENT: PERRL, EOMI, Sclera Non Icteric Neck: Supple, Good ROM, No Lymph Node Enlargement Lungs: Diminished Deandre Bases Cardiovascular: Regular Rhythm, Normal S1, Normal S2, No Murmurs, No Rubs, No Gallops Vascular: No Carotid Bruits, Normal Femoral Pulses, Normal Radial Pulses, Normal Dorsalis Pedal Pulse, Normal Posterior Tibial Pulses Abdomen: Bowel Sounds Present, Soft, Non Tender, No HSM, No Organomegaly Extremities: No Cyanosis, No Clubbing, No edema Neurological: No Focal Motor or Sensory Deficit 12/09/17 05:00: Sodium 139, Potassium 4.4, Chloride 93 L, Carbon Dioxide 45.0 H , Anion Gap 1 L, BUN 47 H, Creatinine 0.99, Est GFR (MDRD) Af Amer 71, Est GFR ( MDRD) Non-Af 59 L, BUN/Creatinine Ratio 47.4 H, Glucose 151 H, Calcium 9.1 12/09/17 05:00: Hemoglobin A1c 6.7 H 12/09/17 14:17: pH 7.43, Bicarbonate Actual 50.9 H, POC Total CO2 > 50, Base Excess 27 H, O2 Saturation 95, ABG pCO2 77.4 H*, ABG pO2 80, Cecil Test POS Assessment/Plan 1. Congestive heart failure-preserved left ventricular ejection fraction. She presents with shortness of breath and is noted to be retaining fluid and this appears to be consistent with congestive heart failure with preserved ejection fraction. My recommendation would be to continue the diuresis as we have begun. As you know she does not have any coronary artery disease and I suspect obesity may be playing a role in this clinical manifestation. We will continue to optimize medical therapy. 2. Pulmonary hypertension Does have evidence of the above which is likely secondary to obesity hypoventilation syndrome. We will continue with diuretics but making sure that she does not have any contraction alkalosis. To follow with you. I have explained the above to the patient and her that based on this I do not think there is a contraindication to her undergoing her bariatric surgery in a few weeks.
[2017-12-09] MEDS: Atorvastatin Calcium 10 MG Tablet PO (21:37)
[2017-12-09] MEDS: Glucerna Shake 120 ML LIQUID PO (21:39)
[2017-12-09 21:56] LABS: Bedside Glucose 228 mg/dL (70-110)
[2017-12-10] VITALS (8 sets, daily range): BP systolic 105–117; BP diastolic 51–54; PULSE 70–94; RESP 16–18; TEMP 36.2–36.7; O2SAT 93–94
[2017-12-10 06:29] LABS: Anion Gap 6 (5-15); BUN 43 mg/dL (7-18); BUN/Creat Ratio 50.6 RATIO (10-20); Calcium,Total 9.7 mg/dL (8.5-10.1); Chloride 90 mmol/L (98-107); Cholesterol 107 mg/dL (200); Creatinine, Serum 0.85 mg/dL (0.55-1.02); EST Glomerular Filtration Rate 70 mL/min (>60); Est Glom Filt Rate - Afr Amer 85 mL/min (>60); Estimated Creatinine Clearance 58.48 ml/min; Glucose 63 mg/dL (74-106); High Density Lipoprotein 39 mg/dL; Potassium 4.3 mmol/L (3.5-5.1); Sodium Level 139 mmol/L (136-145); Triglycerides 110 mg/dL; Very Low Density Lipoprotein 22 mg/dL (5-40)
[2017-12-10] MEDS: Enoxaparin 40 MG/0.4 ML Syringe SC (06:55)
[2017-12-10] MEDS: Ipratropium/Albuterol Sulfate 3 ML AMPUL.NEB INHALATION ×2 (07:00→11:00)
[2017-12-10 07:01] LABS: Bedside Glucose 70 mg/dL (70-110)
--- NOTE | 2017-12-10 07:31 | PN.CARD_ITS ---
Subjectve: The patient was seen and evaluated and appears to be stable with no new complaints Objective: Vital Signs Temp Pulse Resp BP Pulse Ox 98.1 F 91 16 105/51 L 94 12/10/17 02:13 12/10/17 03:33 12/10/17 02:13 12/10/17 02:13 12/10/17 02:13 Oxygen Flow Rate 5 Oxygen Delivery Method Nasal Cannula Weight: 303 lb 5.697 oz Body Mass Index (BMI) 49.1 Intake and Output for Last 24 Hours 12/08/17 12/09/17 12/10/17 23:59 23:59 23:59 Intake Total 200 / 200 950 / 950 Balance 200 / 200 950 / 950 General: Awake, Alert, Oriented x 3, Obese HEENT: PERRL, EOMI, Sclera Non Icteric Neck: Supple, Good ROM, No Lymph Node Enlargement Lungs: Clear to auscultation Cardiovascular: Regular Rhythm, Normal S1, Normal S2, No Murmurs, No Rubs, No Gallops Vascular: No Carotid Bruits, Normal Femoral Pulses, Normal Radial Pulses, Normal Dorsalis Pedal Pulse, Normal Posterior Tibial Pulses Abdomen: Bowel Sounds Present, Soft, Non Tender, No HSM, No Organomegaly Extremities: No Cyanosis, No Clubbing, No edema Neurological: No Focal Motor or Sensory Deficit 12/09/17 05:00: Hemoglobin A1c 6.7 H 12/09/17 14:17: pH 7.43, Bicarbonate Actual 50.9 H, POC Total CO2 > 50, Base Excess 27 H, O2 Saturation 95, ABG pCO2 77.4 H*, ABG pO2 80, Cecil Test POS 12/10/17 05:05: Sodium 139, Potassium 4.3, Chloride 90 L, Carbon Dioxide 43.0 H , Anion Gap 6, BUN 43 H, Creatinine 0.85, Est GFR (MDRD) Af Amer 85, Est GFR ( MDRD) Non-Af 70, BUN/Creatinine Ratio 50.6 H, Glucose 63 L, Calcium 9.7, Triglycerides 110, Cholesterol 107, LDL Cholesterol 46, VLDL Cholesterol 22, HDL Cholesterol 39 L Rhythm: Normal sinus rhythm Assessment/Plan 1. Congestive heart failure-preserved left ventricular ejection fraction. She presents with shortness of breath and is noted to be retaining fluid and this appears to be consistent with congestive heart failure with preserved ejection fraction. My recommendation would be to continue the diuresis as we have begun. As you know she does not have any coronary artery disease and I suspect obesity may be playing a role in this clinical manifestation. We will continue to optimize medical therapy. 2. Pulmonary hypertension Does have evidence of the above which is likely secondary to obesity hypoventilation syndrome. We will continue with diuretics but making sure that she does not have any contraction alkalosis. I will to follow with you on an outpatient basis. I have explained the above to the patient and her that based on this I do not think there is a contraindication to her undergoing her bariatric surgery in a few weeks. Stable for outpatient follow-up from my standpoint.
--- NOTE | 2017-12-10 08:16 | PCM.PROGNOTE ---
Patient Problems: Active and Suspected Problems (Last Reviewed 09/20/17 @ 11:56 by Luis Leone MD) Acute on chronic respiratory failure with hypoxia and hypercapnia (Acute) Subjective: The patient was seen and examined. Sleeping upon entering room. No complaints today. She has been weaned from 6 L to 3 L of oxygen supplementation. Denies any significant cough or sputum production. Still has dyspnea on exertion, but feels she is approaching her baseline. When asked to ambulate more today, she stated I did that yesterday. Objective: Recent labwork reviewed. ABG done 12/09 secondary to rising serum bicarbonate/possible contraction alkalosis. Patient retaining CO2 and bicarb was elevated at 50.9. pO2 and pH normal. No new culture data. Clinical Impression(s) from Imaging Studies Chest CTA 12/09/17 14:10 IMPRESSION: There is no evidence of pulmonary embolism, aortic aneurysm or aortic dissection. The study is limited by breathing motion artifact which limits evaluation of the peripheral branches. There is minimal dependent atelectasis in both lower lobes. The previously seen consolidation in the superior segment of the right lower lobe is no longer present. There is no pleural effusion or significant lymphadenopathy. Electronically Signed: Melissa Werner MD at 17:01 EST Tel Direct: [phone], Service support , - Physical Exam General: Alert, Oriented x3, Cooperative, No apparent distress, Well developed, Well nourished, - - obese HEENT: Atraumatic, Normocephalic Oral: Moist Mucosa, No Gingival or Mucosal Lesions/ Ulcerations Neck: Supple, No Nodes, Trachea Midline Lungs: No rhonchi, No wheeze, No rales, Diminished Cardiovascular: Regular rate, Regular Rhythm, Normal S1, Normal S2, No murmurs, No rub noted, No Gallop Abdomen: Bowel Sounds Present, Soft, Non Tender, Non-Distended, Obese Extremities: No clubbing, No cyanosis, Edema - trace Skin: - - no changes from previous Musculoskeletal: No Tenderness to Palpation of Joints or Extremities Lymphatic: No Cervical, Supraclavicular, or Inguinal Adenopathy Neurological: Cranial nerves II-XII grossly intact, Neuro grossly intact, Motor Exam 5/5 strength throughout Psych/Mental Status: Alert and oriented to time, place, person, mood and affect Vital Signs Temp Pulse Resp BP Pulse Ox 98.1 F 94 16 105/51 L 94 12/10/17 02:13 12/10/17 07:08 12/10/17 02:13 12/10/17 02:13 12/10/17 02:13 Oxygen Flow Rate 5 Oxygen Delivery Method Nasal Cannula Weight: 303 lb 5.697 oz Body Mass Index (BMI) 49.1 Intake and Output for Last 24 Hours 12/08/17 12/09/17 12/10/17 23:59 23:59 23:59 Intake Total 200 / 200 950 / 950 Balance 200 / 200 950 / 950 Microbiology Past 72 Hours 12/03/17 21:15 Blood Culture - Final Blood Culture (Wb) - Right Forearm No growth in 5 days. Laboratory Tests Past 24 Hrs 12/09/17 12/09/17 12/10/17 05:00 14:17 05:05 Specimen Type ART Sample Site R RADIAL pH 7.43 Bicarbonate Actual 50.9 H POC Total CO2 > 50 Base Excess 27 H O2 Saturation 95 ABG pCO2 77.4 H* ABG pO2 80 Cecil Test POS O2 Delivery Device Nasal Can Liter Flow 5.0 Blood Gas Notified Whom ICU Blood Gas Notified Time 1417 Sodium 139 Potassium 4.3 Chloride 90 L Carbon Dioxide 43.0 H Anion Gap 6 BUN 43 H Creatinine 0.85 Estim Creat Clear Calc 58.48 Est GFR (MDRD) Af Amer 85 Est GFR (MDRD) Non-Af 70 BUN/Creatinine Ratio 50.6 H Glucose 63 L Hemoglobin A1c 6.7 H Calcium 9.7 Triglycerides 110 Cholesterol 107 LDL Cholesterol 46 VLDL Cholesterol 22 HDL Cholesterol 39 L POC Glucose 12/09/17 12/09/17 12/09/17 21:42 17:40 13:31 POC Glucose 228 H 204 H 155 H 12/09/17 11:17 POC Glucose 139 H Assessment/Plan Active and Suspected Problems (Last Reviewed 09/20/17 @ 11:56 by Luis Leone MD) Acute on chronic respiratory failure with hypoxia and hypercapnia (Acute) RECOMMENDATIONS 1. Wean oxygen supplementation to keep saturations greater than 89% 2. Encourage incentive spirometer/aggressive pulmonary toileting 3. Increase activity as tolerated, ambulate and up to chair 4. Continue bronchodilators 5. Continue diuresis 6. Ambulatory pulse ox prior to discharge 7. Patient can follow-up in the pulmonary clinic in 2 weeks with APPOINTMENT SPECIALIST 8. Patient may be discharged from pulmonary perspective IMPRESSIONS 1. Acute on chronic hypoxic and hypercarbic respiratory failure/questionable pneumonia Etiology unclear, likely multifactorial given history of heart failure and pulmonary hypertension. Patient was admitted on the with no significant improvement. Last echo showed preserved ejection fraction 50% and RVSP of 45 mmHg. A repeat echocardiogram with no significant changes. Cardiology following. Chest CT 12/03 showed mediastinal and bilateral hilar lymphadenopathy with cardiomegaly and pulmonary vascular congestion. There was a questionable right lower lobe pneumonia but CTA chest 12/09 does not indicate infiltrates. Infectious workup has been negative to date. Patient has been afebrile with no leukocytosis. Suspect increased oxygen requirements and chest imaging more related to fluid volume overload than infectious process. Also possible atelectasis/increased oxygen requirements related to morbid obesity hypoventilation syndrome. Continue bronchodilators, increase activity as tolerated and up to chair. Aggressive pulmonary toileting. 2. Acute on chronic diastolic congestive heart failure BNP not elevated. She is up +6300 mL this admission, however do not feel this is accurate as output not recorded. Her oxygen requirements have not returned to her baseline of 2-4 L. The patient is currently being diuresed with oral Lasix at higher dose than outpatient dose of 20mg daily. Cardiology following. I suspect patient not compliant with low-salt diet at home, please educated. May require higher dose of lasix upon discharge. 3. Type 2 diabetes mellitus/morbid obesity/pulmonary hypertension/hypertension/hyperlipidemia Complicates care, management, recovery, and prognosis. Blood sugars have been labile, insulin being adjusted secondary to hypoglycemia and steroid use. Thank you for the opportunity to participate in this patient's care, please do not hesitate to contact us with any further questions or concerns. This note was generated with backstitchation software. It may contain incorrect words, spelling, and punctuation that were not noted in checking the note before signing.
--- NOTE | 2017-12-10 08:28 | PN_ITS ---
Patient Problems: Active and Suspected Problems (Last Reviewed 09/20/17 @ 11:56 by Luis Leone MD) Acute on chronic respiratory failure with hypoxia and hypercapnia (Acute) Subjective: The patient was seen and examined. Sleeping upon entering room. No complaints today. She has been weaned from 6 L to 3 L of oxygen supplementation. Denies any significant cough or sputum production. Still has dyspnea on exertion, but feels she is approaching her baseline. When asked to ambulate more today, she stated I did that yesterday. Objective: Recent labwork reviewed. ABG done 12/09 secondary to rising serum bicarbonate/ possible contraction alkalosis. Patient retaining CO2 and bicarb was elevated at 50.9. pO2 and pH normal. No new culture data. Clinical Impression(s) from Imaging Studies Chest CTA 12/09/17 14:10 IMPRESSION: There is no evidence of pulmonary embolism, aortic aneurysm or aortic dissection. The study is limited by breathing motion artifact which limits evaluation of the peripheral branches. There is minimal dependent atelectasis in both lower lobes. The previously seen consolidation in the superior segment of the right lower lobe is no longer present. There is no pleural effusion or significant lymphadenopathy. Electronically Signed: Melissa Werner MD at 17:01 EST Tel Direct: [phone], Service support , - Physical Exam General: Alert, Oriented x3, Cooperative, No apparent distress, Well developed, Well nourished, - - obese HEENT: Atraumatic, Normocephalic Oral: Moist Mucosa, No Gingival or Mucosal Lesions/ Ulcerations Neck: Supple, No Nodes, Trachea Midline Lungs: No rhonchi, No wheeze, No rales, Diminished Cardiovascular: Regular rate, Regular Rhythm, Normal S1, Normal S2, No murmurs, No rub noted, No Gallop Abdomen: Bowel Sounds Present, Soft, Non Tender, Non-Distended, Obese Extremities: No clubbing, No cyanosis, Edema - trace Skin: - - no changes from previous Musculoskeletal: No Tenderness to Palpation of Joints or Extremities Lymphatic: No Cervical, Supraclavicular, or Inguinal Adenopathy Neurological: Cranial nerves II-XII grossly intact, Neuro grossly intact, Motor Exam 5/5 strength throughout Psych/Mental Status: Alert and oriented to time, place, person, mood and affect Vital Signs Temp Pulse Resp BP Pulse Ox 98.1 F 94 16 105/51 L 94 12/10/17 02:13 12/10/17 07:08 12/10/17 02:13 12/10/17 02:13 12/10/17 02:13 Oxygen Flow Rate 5 Oxygen Delivery Method Nasal Cannula Weight: 303 lb 5.697 oz Body Mass Index (BMI) 49.1 Intake and Output for Last 24 Hours 12/08/17 12/09/17 12/10/17 23:59 23:59 23:59 Intake Total 200 / 200 950 / 950 Balance 200 / 200 950 / 950 Microbiology Past 72 Hours 12/03/17 21:15 Blood Culture - Final Blood Culture (Wb) - Right Forearm No growth in 5 days. Laboratory Tests Past 24 Hrs 12/09/17 12/09/17 12/10/17 05:00 14:17 05:05 Specimen Type ART Sample Site R RADIAL pH 7.43 Bicarbonate Actual 50.9 H POC Total CO2 > 50 Base Excess 27 H O2 Saturation 95 ABG pCO2 77.4 H* ABG pO2 80 Cecil Test POS O2 Delivery Device Nasal Can Liter Flow 5.0 Blood Gas Notified Whom ICU Blood Gas Notified Time 1417 Sodium 139 Potassium 4.3 Chloride 90 L Carbon Dioxide 43.0 H Anion Gap 6 BUN 43 H Creatinine 0.85 Estim Creat Clear Calc 58.48 Est GFR (MDRD) Af Amer 85 Est GFR (MDRD) Non-Af 70 BUN/Creatinine Ratio 50.6 H Glucose 63 L Hemoglobin A1c 6.7 H Calcium 9.7 Triglycerides 110 Cholesterol 107 LDL Cholesterol 46 VLDL Cholesterol 22 HDL Cholesterol 39 L POC Glucose 12/09/17 12/09/17 12/09/17 21:42 17:40 13:31 POC Glucose 228 H 204 H 155 H 12/09/17 11:17 POC Glucose 139 H Assessment/Plan Active and Suspected Problems (Last Reviewed 09/20/17 @ 11:56 by Luis Leone MD) Acute on chronic respiratory failure with hypoxia and hypercapnia (Acute) RECOMMENDATIONS 1. Wean oxygen supplementation to keep saturations greater than 89% 2. Encourage incentive spirometer/aggressive pulmonary toileting 3. Increase activity as tolerated, ambulate and up to chair 4. Continue bronchodilators 5. Continue diuresis 6. Ambulatory pulse ox prior to discharge 7. Patient can follow-up in the pulmonary clinic in 2 weeks with [facility] 8. Patient may be discharged from pulmonary perspective IMPRESSIONS 1. Acute on chronic hypoxic and hypercarbic respiratory failure/questionable pneumonia Etiology unclear, likely multifactorial given history of heart failure and pulmonary hypertension. Patient was admitted on the with no significant improvement. Last echo showed preserved ejection fraction 50% and RVSP of 45 mmHg. A repeat echocardiogram with no significant changes. Cardiology following. Chest CT 12/03 showed mediastinal and bilateral hilar lymphadenopathy with cardiomegaly and pulmonary vascular congestion. There was a questionable right lower lobe pneumonia but CTA chest 12/09 does not indicate infiltrates. Infectious workup has been negative to date. Patient has been afebrile with no leukocytosis. Suspect increased oxygen requirements and chest imaging more related to fluid volume overload than infectious process. Also possible atelectasis/increased oxygen requirements related to morbid obesity hypoventilation syndrome. Continue bronchodilators, increase activity as tolerated and up to chair. Aggressive pulmonary toileting. 2. Acute on chronic diastolic congestive heart failure BNP not elevated. She is up +6300 mL this admission, however do not feel this is accurate as output not recorded. Her oxygen requirements have not returned to her baseline of 2-4 L. The patient is currently being diuresed with oral Lasix at higher dose than outpatient dose of 20mg daily. Cardiology following. I suspect patient not compliant with low-salt diet at home, please educated. May require higher dose of lasix upon discharge. 3. Type 2 diabetes mellitus/morbid obesity/pulmonary hypertension/hypertension/ hyperlipidemia Complicates care, management, recovery, and prognosis. Blood sugars have been labile, insulin being adjusted secondary to hypoglycemia and steroid use. Thank you for the opportunity to participate in this patient's care, please do not hesitate to contact us with any further questions or concerns. This note was generated with [employer] software. It may contain incorrect words, spelling, and punctuation that were not noted in checking the note before signing.
[2017-12-10] MEDS: amLODIPine 5 MG Tablet PO (08:52)
[2017-12-10] MEDS: Lisinopril 5 MG Tablet PO (08:52)
[2017-12-10] MEDS: Carvedilol 6.25 MG Tablet PO (08:52)
[2017-12-10] MEDS: Furosemide 40 MG Tablet PO (08:52)
[2017-12-10] MEDS: Spironolactone 25 MG Tablet PO (08:52)
[2017-12-10] MEDS: Aspirin E.C. 81 MG Tablet PO (08:52)
[2017-12-10] MEDS: guaiFENesin 1,200 MG Tablet 1200 MG PO (08:53)
--- NOTE | 2017-12-10 11:48 | PCM.DC ---
- Discharge Diagnoses Current Active Problems: Current Active and Chronic Problems (Last Reviewed 09/20/17 @ 11:56 by Luis Leone MD) Acute on chronic respiratory failure with hypoxia and hypercapnia (Acute) You will use the following diet at home:: Calorie/Carbohydrate Controlled (specify 1200, 1400, etc) - 1800 zhen/day., Cardiac - 2 grams sodium daily, Other - continue protein supplements as directed by your bariatric team Your food should be the consistency of: Regular Your liquids should be the consistency of: Regular/Thin Discharge Activity: Return to Normal Activity Allergies/Adverse Reactions: Allergies No Known Allergies Allergy (Verified 12/03/17 18:02) Medications to take at Discharge Aspirin [Adult Low Dose Aspirin EC] 81 mg PO DAILY 06/11/16 Fluticasone 0.05% [Flonase Nasal [place]] 1 spray NASAL DAILY 06/11/16 Glimepiride [Amaryl] 4 mg PO BID 06/11/16 Ergocalciferol [Vitamin D] 50,000 unit PO TUTH 09/29/17 amlodipine 5 mg tablet 5 mg PO QDAY #90 tab 11/04/17 carvedilol 6.25 mg tablet 6.25 mg PO BID #180 tab 11/04/17 spironolactone 25 mg tablet 25 mg PO DAILY #1 tab 11/07/17 Albuterol IH (ProAir) [Proair Hfa] 2 puff INHALATION Q6H PRN PRN #1 inhaler 12/10/17 Atorvastatin Calcium [Lipitor] 10 mg PO QHS #30 tablet 12/10/17 Furosemide [Lasix] 40 mg PO BID@1000,1800 #60 tab 12/10/17 Lisinopril [Zestril] 5 mg PO DAILY #30 tab 12/10/17 The following prescriptions were given: Albuterol IH (ProAir) [Proair Hfa] 2 puff INHALATION Q6H PRN PRN #1 inhaler PRN Reason: Wheezing Furosemide [Lasix] 40 mg PO BID@1000,1800 #60 tab Lisinopril [Zestril] 5 mg PO DAILY #30 tab Primary Care Physician: Joseph Dos Santos [Primary Care Provider] - Please follow up with your Primary Care Physician in: 2 weeks Please Follow Up With: Vitor Morales MD When: 1-2 weeks Please Follow Up With: Luis Leone MD When: 2-3 weeks Proposed Discharge Date: 12/10/17
--- NOTE | 2017-12-10 12:40 | PCM.DC.SUM ---
Discharge Date and Diagnosis - Problem List Patient Problems: Active and Suspected Problems (Last Reviewed 09/20/17 @ 11:56 by Luis Leone MD) Acute on chronic respiratory failure with hypoxia and hypercapnia (Acute) Date of Admission: 12/03/17 Date of Discharge: 12/10/17 - Primary Discharge Diagnosis Active and Suspected Problems (Last Reviewed 09/20/17 @ 11:56 by Luis Leone MD) Acute on chronic respiratory failure with hypoxia and hypercapnia (Acute) 2/2 acute on chronic diastolic CHF Pulmonary HTN Obesity hypoventilation syndrome DMt2 Morbid obesity - Secondary Discharge Diagnosis Chronic Problems (Last Reviewed 09/20/17 @ 11:56 by Luis Leone MD) Pulmonary hypertension (Chronic) CHF (congestive heart failure) (Chronic) Diabetes (Chronic) Chronic diastolic heart failure (Chronic) Shortness of breath (Chronic) Dyspnea (Chronic) Thoracic kyphosis (Chronic) Other secondary pulmonary hypertension (Chronic) Leg edema (Chronic) Obesity (Chronic) Nonrheumatic tricuspid (valve) insufficiency (Chronic) Hypersomnia (Chronic) Body mass index (BMI) 35 or more (Chronic) HTN (hypertension) (Chronic) Hyperlipidemia (Chronic) Hospital Course and Treatment Imaging Results: CT/CTA Chest W/WO Contrast IMPRESSION: There is no evidence of pulmonary embolism, aortic aneurysm or aortic dissection. The study is limited by breathing motion artifact which limits evaluation of the peripheral branches. There is minimal dependent atelectasis in both lower lobes. The previously seen consolidation in the superior segment of the right lower lobe is no longer present. There is no pleural effusion or significant lymphadenopathy. Duplex US legs: Superficial Venous Thrombosis Echo: Interpretation Summary No evidence for diastolic dysfunction. Normal LV size. The estimated ejection fraction is 55 %. Moderate (2+) tricuspid valve insufficiency. Moderate pulmonary hypertension. Pulmonary artery systolic pressure is 51 mmHg. Compared to prior study, there is no significant change. CT/Chest without Contrast IMPRESSION: Mediastinal and bilateral hilar lymphadenopathy. Cardiomegaly and pulmonary vascular congestion. Developing right lower lobe pneumonia. at 2315 Reported and signed by: Mague Hill MD RAD/Chest 1 View (Portable) IMPRESSION: Increasing prominence of the bilateral hilar regions, may be vascular or lymphadenopathy. Mild edema with developing atelectasis or consolidation at the lung bases. Follow-up with additional lateral view is recommended. Consultations: Pulmonology-[facility] Cardiology- [facility] Operations: None Procedures: 2-D Echocardiogram Summary of Care Provided: Physical exam on day of discharge: General: Resting comfortably NAD Psych: A/Ox3 normal affect HEENT: PEARRLA AT NC Neck: Supple NT CV: RRR no m/t/r/g/h Resp: CTA Abd: [id number] Soft NT no guarding or rigidity Ext: DP2+= no edema Skin: W/D normal turgor Lymph/Heme: No active bleeding or adenopathy Neuro: CN2-12 intact Hospital course: The patient is a 67 year old F with a history of pulmonary hypertension, chronic diastolic heart failure, chronic hypoxic respiratory failure on chronic 2-4 L oxygen at home during the day and at night, type 2 diabetes, morbid obesity, hypertension, hyperlipidemia who presented to the emergency room with increased shortness of breath. She reported chills, no fever, productive cough of yellow to green sputum and sick contacts including her and grandchildren. In the emergency room she had an SPO2 of 85% on 4 L of oxygen. She had normally been wearing 2 L of oxygen at home but recently had increased herself up to 4 L. She had chest x-ray demonstrating mild edema with atelectasis or consolidation. She was admitted to PCU for acute on chronic respiratory failure. She was started on Levaquin. She is felt to have a component of congestive heart failure and was started on IV Lasix. She was also given IV steroids and bronchodilators initially. She does not have any history of COPD/asthma. She is very slow to recover. Pulmonology and cardiology were consulted. Her antibiotics were discontinued as her symptoms were attributed to acute on chronic diastolic heart heart failure and her pulmonary hypertension complicated by obesity hypoventilation syndrome. She is maintained on bronchodilators and Lasix. She continued to improve slowly. She had an echocardiogram which demonstrated preserved ejection fraction, EF 55%, 2+ TVI, moderate pulmonary hypertension with pulmonary artery systolic pressure of 51 mmHg. She appear to be developing a contraction alkalosis as well as transition to p.o. Lasix and remained stable. She also had some swelling of her left lower extremity while here and a venous ultrasound was done. This revealed superficial venous thrombosis. A CTA of the chest was done to look for any pulmonary emboli, this was negative for embolism. She was able to have her oxygen weaned. With physical therapy she was able to ambulate pulse with no shortness of breath on 3 L of oxygen. She did desaturate to 88% despite not having increased shortness of breath so was recommended that she increase her oxygen while ambulating. Patient was advised to follow-up with cardiology, pulmonology, her PCP, and she also plans to follow-up with bariatric surgery, she is scheduled to have bariatric surgery on December 31 of this year. Remained in stable condition was discharged home. This patient was seen by Levon Gaffney PA-C under the supervision of Doctor Melia. [] Discharge Diet: Low fat/ Low Cholesterol, 1800 Calorie Control Diet, 2000 mg Sodium Diet Discharge Activity: Return to Normal Activity Home Medications: Medications to take at Discharge Aspirin [Adult Low Dose Aspirin EC] 81 mg PO DAILY 06/11/16 Fluticasone 0.05% [Flonase Nasal [place]] 1 spray NASAL DAILY 06/11/16 Glimepiride [Amaryl] 4 mg PO BID 06/11/16 Ergocalciferol [Vitamin D] 50,000 unit PO TUTH 09/29/17 amlodipine 5 mg tablet 5 mg PO QDAY #90 tab 11/04/17 carvedilol 6.25 mg tablet 6.25 mg PO BID #180 tab 11/04/17 spironolactone 25 mg tablet 25 mg PO DAILY #1 tab 11/07/17 Albuterol IH (ProAir) [Proair Hfa] 2 puff INHALATION Q6H PRN PRN #1 inhaler 12/10/17 Atorvastatin Calcium [Lipitor] 10 mg PO QHS #30 tablet 12/10/17 Furosemide [Lasix] 40 mg PO BID@1000,1800 #60 tab 12/10/17 Lisinopril [Zestril] 5 mg PO DAILY #30 tab 12/10/17 Following Prescrptions Were Given to Patient: Albuterol IH (ProAir) [Proair Hfa] 2 puff INHALATION Q6H PRN PRN #1 inhaler PRN Reason: Wheezing Furosemide [Lasix] 40 mg PO BID@1000,1800 #60 tab Lisinopril [Zestril] 5 mg PO DAILY #30 tab Primary Care Physician: Joseph Dos Santos [Primary Care Provider] - Please follow up with your Primary Care Physician in: 2 weeks Please Follow Up With: Vitor Morales MD When: 1-2 weeks Please Follow Up With: Luis Leone MD When: 2-3 weeks Please Follow Up With: Joseph Dos Santos When: 1 week Disposition: Home Minutes spent on discharge:: 40 Patient Condition:: Stable Meaningful Use Info Meaningful Use Diagnoses (Choose all that apply): CHF - CHF ALBARO/ARB ordered at discharge?: Yes Documented LVEF (%): 55
--- NOTE | 2017-12-10 12:50 | DS.PCM_ITS ---
Discharge Date and Diagnosis - Problem List Patient Problems: Active and Suspected Problems (Last Reviewed 09/20/17 @ 11:56 by Luis Leone MD) Acute on chronic respiratory failure with hypoxia and hypercapnia (Acute) Date of Admission: 12/03/17 Date of Discharge: 12/10/17 - Primary Discharge Diagnosis Active and Suspected Problems (Last Reviewed 09/20/17 @ 11:56 by Luis Leone MD) Acute on chronic respiratory failure with hypoxia and hypercapnia (Acute) 2/2 acute on chronic diastolic CHF Pulmonary HTN Obesity hypoventilation syndrome DMt2 Morbid obesity - Secondary Discharge Diagnosis Chronic Problems (Last Reviewed 09/20/17 @ 11:56 by Luis Leone MD) Pulmonary hypertension (Chronic) CHF (congestive heart failure) (Chronic) Diabetes (Chronic) Chronic diastolic heart failure (Chronic) Shortness of breath (Chronic) Dyspnea (Chronic) Thoracic kyphosis (Chronic) Other secondary pulmonary hypertension (Chronic) Leg edema (Chronic) Obesity (Chronic) Nonrheumatic tricuspid (valve) insufficiency (Chronic) Hypersomnia (Chronic) Body mass index (BMI) 35 or more (Chronic) HTN (hypertension) (Chronic) Hyperlipidemia (Chronic) Hospital Course and Treatment Imaging Results: CT/CTA Chest W/WO Contrast IMPRESSION: There is no evidence of pulmonary embolism, aortic aneurysm or aortic dissection. The study is limited by breathing motion artifact which limits evaluation of the peripheral branches. There is minimal dependent atelectasis in both lower lobes. The previously seen consolidation in the superior segment of the right lower lobe is no longer present. There is no pleural effusion or significant lymphadenopathy. Duplex US legs: Superficial Venous Thrombosis Echo: Interpretation Summary No evidence for diastolic dysfunction. Normal LV size. The estimated ejection fraction is 55 %. Moderate (2+) tricuspid valve insufficiency. Moderate pulmonary hypertension. Pulmonary artery systolic pressure is 51 mmHg. Compared to prior study, there is no significant change. CT/Chest without Contrast IMPRESSION: Mediastinal and bilateral hilar lymphadenopathy. Cardiomegaly and pulmonary vascular congestion. Developing right lower lobe pneumonia. at 2315 Reported and signed by: Mague Hill MD RAD/Chest 1 View (Portable) IMPRESSION: Increasing prominence of the bilateral hilar regions, may be vascular or lymphadenopathy. Mild edema with developing atelectasis or consolidation at the lung bases. Follow-up with additional lateral view is recommended. Consultations: Pulmonology-[facility] Cardiology- [facility] Operations: None Procedures: 2-D Echocardiogram Summary of Care Provided: Physical exam on day of discharge: General: Resting comfortably NAD Psych: A/Ox3 normal affect HEENT: PEARRLA AT NC Neck: Supple NT CV: RRR no m/t/r/g/h Resp: CTA Abd: [id number] Soft NT no guarding or rigidity Ext: DP2+= no edema Skin: W/D normal turgor Lymph/Heme: No active bleeding or adenopathy Neuro: CN2-12 intact Hospital course: The patient is a 67 year old F with a history of pulmonary hypertension, chronic diastolic heart failure, chronic hypoxic respiratory failure on chronic 2-4 L oxygen at home during the day and at night, type 2 diabetes, morbid obesity, hypertension, hyperlipidemia who presented to the emergency room with increased shortness of breath. She reported chills, no fever, productive cough of yellow to green sputum and sick contacts including her and grandchildren. In the emergency room she had an SPO2 of 85% on 4 L of oxygen. She had normally been wearing 2 L of oxygen at home but recently had increased herself up to 4 L. She had chest x-ray demonstrating mild edema with atelectasis or consolidation. She was admitted to PCU for acute on chronic respiratory failure. She was started on Levaquin. She is felt to have a component of congestive heart failure and was started on IV Lasix. She was also given IV steroids and bronchodilators initially. She does not have any history of COPD/asthma. She is very slow to recover. Pulmonology and cardiology were consulted. Her antibiotics were discontinued as her symptoms were attributed to acute on chronic diastolic heart heart failure and her pulmonary hypertension complicated by obesity hypoventilation syndrome. She is maintained on bronchodilators and Lasix. She continued to improve slowly. She had an echocardiogram which demonstrated preserved ejection fraction, EF 55%, 2 + TVI, moderate pulmonary hypertension with pulmonary artery systolic pressure of 51 mmHg. She appear to be developing a contraction alkalosis as well as transition to p.o. Lasix and remained stable. She also had some swelling of her left lower extremity while here and a venous ultrasound was done. This revealed superficial venous thrombosis. A CTA of the chest was done to look for any pulmonary emboli, this was negative for embolism. She was able to have her oxygen weaned. With physical therapy she was able to ambulate pulse with no shortness of breath on 3 L of oxygen. She did desaturate to 88% despite not having increased shortness of breath so was recommended that she increase her oxygen while ambulating. Patient was advised to follow-up with cardiology, pulmonology, her PCP, and she also plans to follow-up with bariatric surgery, she is scheduled to have bariatric surgery on December 31 of this year. Remained in stable condition was discharged home. This patient was seen by Levon Gaffney PA-C under the supervision of Doctor Melia. [] Discharge Diet: Low fat/ Low Cholesterol, 1800 Calorie Control Diet, 2000 mg Sodium Diet Discharge Activity: Return to Normal Activity Home Medications: Medications to take at Discharge Aspirin [Adult Low Dose Aspirin EC] 81 mg PO DAILY 06/11/16 Fluticasone 0.05% [Flonase Nasal [place]] 1 spray NASAL DAILY 06/11/16 Glimepiride [Amaryl] 4 mg PO BID 06/11/16 Ergocalciferol [Vitamin D] 50,000 unit PO TUTH 09/29/17 amlodipine 5 mg tablet 5 mg PO QDAY #90 tab 11/04/17 carvedilol 6.25 mg tablet 6.25 mg PO BID #180 tab 11/04/17 spironolactone 25 mg tablet 25 mg PO DAILY #1 tab 11/07/17 Albuterol IH (ProAir) [Proair Hfa] 2 puff INHALATION Q6H PRN PRN #1 inhaler Atorvastatin Calcium [Lipitor] 10 mg PO QHS #30 tablet 12/10/17 Furosemide [Lasix] 40 mg PO BID@1000,1800 #60 tab 12/10/17 Lisinopril [Zestril] 5 mg PO DAILY #30 tab 12/10/17 Following Prescrptions Were Given to Patient: Albuterol IH (ProAir) [Proair Hfa] 2 puff INHALATION Q6H PRN PRN #1 inhaler PRN Reason: Wheezing Furosemide [Lasix] 40 mg PO BID@1000,1800 #60 tab Lisinopril [Zestril] 5 mg PO DAILY #30 tab Primary Care Physician: Joseph Dos Santos [Primary Care Provider] - Please follow up with your Primary Care Physician in: 2 weeks Please Follow Up With: Vitor Morales MD When: 1-2 weeks Please Follow Up With: Luis Leone MD When: 2-3 weeks Please Follow Up With: Joseph Dos Santos When: 1 week Disposition: Home Minutes spent on discharge:: 40 Patient Condition:: Stable Meaningful Use Info Meaningful Use Diagnoses (Choose all that apply): CHF - CHF ALBARO/ARB ordered at discharge?: Yes Documented LVEF (%): 55
--- NOTE | 2017-12-10 13:32 | CASEMGMT ---
Per Vicky MOCK, pt will need to be on 3-4liters 06/05 at home. This RN CM to room to discuss with pt and she states that her concentrator at home will work at this time and pt states no concerns. Advised pt that if at any time, she needs order for larger concentrator then she can speak with her PCP in regards to a new order for larger concentrator, pt voices understanding at this time. SStaten JULIANE BEAN
[2017-12-10 13:36] LABS: Bedside Glucose 76 mg/dL (70-110)
== END 2017-12-10 15:09 | disposition home or self-care (01) | DRG 291 ==
LOC: ED 18:47 → PCU 21:27
PROVIDERS: Internal Medicine; Physician Assistant; Admitting Provider Internal Medicine; Emergency Provider Emergency Medicine; Family Provider Family Medicine; PCP Family Medicine; Visit Provider Family Medicine
DX: I11.0 Hypertensive heart disease with heart failure (principal); J96.21 Acute and chronic respiratory failure with hypoxia; J96.02 Acute respiratory failure with hypercapnia; I27.29 Other secondary pulmonary hypertension; E66.2 Morbid (severe) obesity with alveolar hypoventilation; Z68.42 Body mass index [BMI] 45.0-49.9, adult; E11.65 Type 2 diabetes mellitus with hyperglycemia; I82.812 Embolism and thrombosis of superficial veins of left lower extremity; I36.1 Nonrheumatic tricuspid (valve) insufficiency; I50.33 Acute on chronic diastolic (congestive) heart failure; Z99.81 Dependence on supplemental oxygen; E78.5 Hyperlipidemia, unspecified; Z91.19 Patient's noncompliance with other medical treatment and regimen; M40.204 Unspecified kyphosis, thoracic region; G47.10 Hypersomnia, unspecified; Z79.84 Long term (current) use of oral hypoglycemic drugs; Z87.891 Personal history of nicotine dependence
CPT/HCPCS: 36415; 36600; 71045; 71250; 71275; 80048; 80053; 80061; 82803; 82962; 83036; 83605; 83880; 85025; 85027; 85610; 85730; 87040; 87086; 87088; 87449; 87633; 93005; 93306; 93971; 94640; 97110; 97116; 97162; 97165; 97530; 97802; 99251; 99283; J7040; J7050; Q9967; A4216; G0463; J1940

== ENCOUNTER 2017-12-11 16:01 | Emergency (ER) | payer MEDICARE, MEDICAID, SELFPAY ==
[2017-12-11 16:03] VITALS: BP 95/46; PULSE 89; RESP 22; TEMP 36.2; O2SAT 95; BMI 48.4
[2017-12-11 16:52] VITALS: BP 118/66; PULSE 78; RESP 19; O2SAT 95
[2017-12-11 17:22] VITALS: O2SAT 87
--- NOTE | 2017-12-11 17:27 | ED.DCSUM_ITS ---
- ER Visit Summary Date of Service: 12/11/17 Chief Complaint: Needs oxygen History of Present Illness: The patient is a 67 F who was discharged from the hospital yesterday. She carries a diagnosis of pulmonary hypertension and congestive heart failure. She was to wear at minimum 3 L of oxygen increasing it as needed for exertion. She tells me that what she has at home is a portable O2 concentrator that she bought. It goes to a max of 4 L. It is not a continuous flow rather is pulsating based on her breathing. She states that her oxygen levels have been low last night and today. She cannot ambulate without becoming hypoxic. Her is extremely angry and vocal. After yelling at me within 2 minutes of walking into the room I informed the gentleman he will need to leave. He angrily leaves. Police were notified. Patient is apologetic for his behavior. Physical Examination: Afebrile vital signs are stable 95% on 5 L Gen: Well-nourished well-developed morbidly obese Head: Normocephalic atraumatic Eyes: Perrl EOMI ENT: TMs clear no rhinorrhea moist mucous membranes Neck: Supple no lymphadenopathy no JVD nontender CVS: Regular rate rhythm no murmurs normal S1-S2 Respiratory: No distress clear to auscultation bilaterally chest nontender Abdomen: Soft nontender nondistended normal bowel sounds no masses Back: Nontender Extremity: Nontender no edema Skin: Normal color no rash Neuro: alert orientated ?3 CN II-XII intact normal strength sensation reflexes gait cerebellar Psych: Normal affect normal mood Emergency Department Course and Treatment: I spoke with case management has been able to work with [facility] to get home oxygen. She ambulated here at 5 L and was not hypoxic. She has not been hypoxic on the monitor of the will return her oxygen off. She needs home oxygen that is titratable based upon her oxygen demands. He is to follow-up with Dr. Leone from pulmonology critical care tomorrow. Impression: 1. Pulmonary hypertension 2. Congestive heart failure 3. Hypoxemia This note was generated with [employer] dictation software. It may contain incorrect words, spelling, and punctuation that were not noted in review of the chart prior to signing ED Disposition - Plan for ED Patient: Disposition: Home or Assisted Living Chief Complaint: Med Refill Instructions: Pulmonary Hypertension Referrals: Joseph Dos Santos [Primary Care Provider] - Luis Leone MD [STAFF PHYSICIAN] - Keep Sharon appointment
--- NOTE | 2017-12-11 17:32 | CM.ED ---
Pt. states [employer] is preferred oxygen company. Nikita, from [facility], will delivery oxygen tank for patient to discharge to home. He will then proceed to set up portables at patient's home. Script for 6L continuous oxygen flow. Nikita states he should be here by in approx 30 min.
[2017-12-11 17:52] VITALS: BP 122/74; PULSE 81; RESP 12; O2SAT 95
[2017-12-11 18:18] VITALS: BP 112/77; PULSE 76; RESP 20; O2SAT 93
== END 2017-12-11 18:20 | disposition home or self-care (01) ==
PROVIDERS: Emergency Provider Emergency Medicine; Family Provider Family Medicine; PCP Family Medicine
DX: I27.20 Pulmonary hypertension, unspecified (principal); I50.9 Heart failure, unspecified; R09.02 Hypoxemia; E66.01 Morbid (severe) obesity due to excess calories; Z99.81 Dependence on supplemental oxygen; Z79.82 Long term (current) use of aspirin; Z79.899 Other long term (current) drug therapy
CPT/HCPCS: 99283

== ENCOUNTER → 2018-04-25 15:21 | Outpatient (CLI) | payer MEDICARE, MEDICAID, SELFPAY ==
--- NOTE | 2018-04-25 15:25 | MRI_ITS ---
STUDY: MRI THORACIC SPINE WITHOUT CONTRAST REASON FOR EXAM: Female, 67 years old. Mid back pain TECHNIQUE: Standardized fat and water weighted pulse sequences were obtained in the sagittal and axial planes. COMPARISON: None. FINDINGS: Normal kyphosis of the thoracic spine. There is no substantial scoliosis. T1-2, T2-3, T3-4, T4-5, T5-6, T6-7, T7-8, T8-9, T9-10, T10-11, T11-12: Normal endplates. Normal disc hydration, heights and morphology of the corresponding intervertebral discs. Normal central canal and intervertebral neural foramina at the corresponding levels. Increased signal in the bone marrow on T1-weighted images and T2-weighted images in the vertebral bodies of T6, T7, T8 consistent with benign hemangiomas have no clinical significance. Normal visualized thoracic cord. Normal conus medullaris that terminates at the . The soft tissue structures are unremarkable. MRI/Spine Thoracic (Routine) IMPRESSION: There is no evidence of fracture. There is no evidence of significant spinal canal stenosis. Hemangiomas are noted at T6, T7 and T8 have no clinical significance. Electronically Signed: Lynette Ovalles MD at 2:02 EDT Tel , Service support ,
--- NOTE | 2018-04-25 16:32 | RAD_ITS ---
STUDY: X-RAY - LEFT KNEE REASON FOR EXAM: Female, 67 years old. Osteoarthritis. Pain. TECHNIQUE: 3 view(s) of the knee with weightbearing. COMPARISON: None. FINDINGS: Alignment is normal. No fracture or dislocation. Severe lateral joint space narrowing. Narrowing of the patellofemoral joint. Small osteophyte posterior aspect of the patella. No joint effusion. The soft tissue structures are unremarkable. RAD/Knee 3 Views IMPRESSION: Severe degenerative changes lateral compartment. Degenerative changes patellofemoral joint. Electronically Signed: Nikko Huber MD at 5:54 EDT , Service support ,
== END ==
PROVIDERS: Family Provider Family Medicine; PCP Family Medicine; Visit Provider Family Medicine
DX: M17.0 Bilateral primary osteoarthritis of knee (principal); M54.6 Pain in thoracic spine
CPT/HCPCS: 72146; 73562

== ENCOUNTER → 2018-05-27 13:48 | Outpatient (CLI) | payer MEDICARE, MEDICAID, SELFPAY | PROVIDERS: Family Provider Family Medicine; PCP Family Medicine; Visit Provider Orthopaedic Surgery | DX: M25.561 Pain in right knee (principal); M25.562 Pain in left knee; G89.29 Other chronic pain | CPT/HCPCS: 73564; 87070; 87075; 87205; 89050; 89051; 89060 ==

== ENCOUNTER → 2018-05-27 16:32 | Outpatient (CLI) | payer MEDICARE, MEDICAID, SELFPAY ==
[2018-05-27 16:35] LABS: Pathologist Comment May follow
[2018-05-27 18:59] LABS: Synovial Fld Mononuclear WBC % 70.8 %; Synovial Fld Polynuclear WBC # 0.071 10^3/ul; Synovial Fld Polynuclear WBC % 29.2 %
[2018-05-27 19:03] LABS: AUTO B FLUID DILUENT BKGD CT WBC <0.1 RBC <0.01 (W<.1,R<.01)
[2018-05-27 19:04] LABS: Appearance /Synovial Fluid Clear (CLEAR); Body Fluid QC Type(s) BF1Q,BF2Q; Color / Synovial Fluid Yellow (Pale Yellow); Source / Synovial Fluid LEFT KNEE; Source- Body Fluid SYNOVIAL; Viscosity / Synovial Fluid Sl. Viscous (HIGH)
[2018-05-27 19:10] LABS: RBC /Synovial Fluid 9 /mm3 (0)
[2018-05-27 20:32] LABS: Pathologist Comment May follow
[2018-05-27 20:33] LABS: AUTO B FLUID DILUENT BKGD CT WBC <0.1 RBC <0.01 (W<.1,R<.01)
[2018-05-27 20:34] LABS: Source- Body Fluid SYNOVIAL
[2018-05-27 20:35] LABS: Appearance /Synovial Fluid Clear (CLEAR); Body Fluid QC Type(s) BF1Q,BF2Q; Color / Synovial Fluid Yellow (Pale Yellow); RBC /Synovial Fluid 36 /mm3 (0); Source / Synovial Fluid RIGHT KNEE; Viscosity / Synovial Fluid Sl. Viscous (HIGH)
[2018-05-27 21:42] LABS: Lymph 54 %; Monocyte /Synovial Fluid 46 %
[2018-05-27 21:46] LABS: Lymph 82 %; Monocyte /Synovial Fluid 18 %
[2018-05-28 15:07] LABS: Pathologist Review Reviewed
[2018-05-28 15:07] LABS: Pathologist Review Reviewed
== END ==
PROVIDERS: Family Provider Family Medicine; Visit Provider Orthopaedic Surgery
DX: M25.561 Pain in right knee (principal); M25.562 Pain in left knee; G89.29 Other chronic pain
CPT/HCPCS: 87070; 87075; 87205; 89050; 89051; 89060

== ENCOUNTER → 2018-06-04 11:53 | Outpatient (CLI) | payer MEDICARE, MEDICAID, SELFPAY ==
--- NOTE | 2018-06-04 14:54 | PFTCOMP ---
COMPLETE PULMONARY FUNCTION TEST INTERPRETATION Brief HPI: Patient is a 67 year old female, currently under the care of myself, who presents to [facility] for complete pulmonary function tests secondary to diagnosis of respiratory failure. Respiratory therapist reports good effort and reproducible results. Interpretation: Forced expiration spirometry shows a moderate large airways obstructive ventilatory defect with an FEV1 of 66% predicted. There is a significant bronchodilator response in FVC by ATS criteria. Spirograms are of good quality and plateau slowly, indicating slowly emptying areas of the lungs. The respiratory flow volume loop shows decreased expiratory flow rates at all lung volumes consistent with airway obstruction. Lung volumes by body plethysmography show a normal total lung capacity at 5.29 L, 105% predicted. FRC and RV are elevated out of proportion. Lung volume measurements are consistent with air-trapping. Diffusion capacity by carbon monoxide is decreased at 57% predicted. The airway resistance is elevated. Compared to previous pulmonary function tests from 03/01/2017, there has been a significant improvement in FVC, FEV1 and DLCO. Impression: Partially reversible moderate large airways obstructive ventilatory defect with a symmetric reduction diffusing capacity consistent with COPD. There has been some improvement compared to previous testing.
== END ==
PROVIDERS: Family Provider Family Medicine; PCP Family Medicine; Visit Provider Internal Medicine Critical Care Medicine
DX: J96.11 Chronic respiratory failure with hypoxia (principal); I27.29 Other secondary pulmonary hypertension
CPT/HCPCS: 94060; 94726; 94729

== ENCOUNTER → 2018-06-09 12:11 | Outpatient (CLI) | payer MEDICARE, MEDICAID, SELFPAY ==
[2018-06-09 12:42] VITALS: PULSE 54; PULSE 60; PULSE 67; PULSE 79; PULSE 80; PULSE 81; O2SAT 90; O2SAT 93; O2SAT 94; O2SAT 95; O2SAT 96
--- NOTE | 2018-06-09 14:11 | PCM.PSN.6M ---
PSN 6 Minute Walk Test - 6 Minute Walk Test 6 Minute Walk Test: 6 Minute Walk Test PSN:6-Minute Walk Test Start: 06/09/18 12:42 Freq: Status: Active Protocol: [id number].6MINW Document 06/09/18 12:42 AYALA (Rec: 06/09/18 12:44 AYALA [id number]) 6 Minute Walk Test Date Performed 06/09/18 Time Performed 12:30 Height 5 ft 5 in Weight: 104.78 kg Weight in Pounds 231.[address]: Luis Leone Assistive device used: None Pre-test Oxygen Delivery Method Room Air Pulse Ox (%) 93 Pulse Rate (60-100 beats/min) 54 L Dyspnea Matti Scale (0-10) 0 Exertion Matti Scale (6-20) 6 1st minute Oxygen Delivery Method Room Air Pulse Ox (%) 93 Pulse Rate (60-100 beats/min) 67 2nd minute Oxygen Delivery Method Room Air Pulse Ox (%) 90 Pulse Rate (60-100 beats/min) 79 3rd minute Oxygen Delivery Method Room Air Pulse Ox (%) 94 Pulse Rate (60-100 beats/min) 80 4th minute Oxygen Delivery Method Room Air Pulse Ox (%) 94 Pulse Rate (60-100 beats/min) 81 5th minute Oxygen Delivery Method Room Air Pulse Ox (%) 94 Pulse Rate (60-100 beats/min) 80 6th minute Oxygen Delivery Method Room Air Pulse Ox (%) 95 Pulse Rate (60-100 beats/min) 79 Dyspnea Matti Scale (0-10) 3 Exertion Matti Scale (6-20) 13 Post-test Oxygen Delivery Method Room Air Pulse Ox (%) 96 Pulse Rate (60-100 beats/min) 60 Full Laps Walked 15 Partial Lap, Number of Tiles Walked 30 Total Distance Walked (ft) 915 - Interpretation Interpretation: The patient was able to ambulate 915 feet over the course of 6 minutes on room air with no assistive devices or breaks. The patient did have a baseline saturation of 93% and desaturated as low as 90% during ambulation. No significant tachycardia was noted. These findings are consistent with a respiratory limitation exercise tolerance. - Recommendations Recommendations: No supplemental oxygen is indicated with exertion. However, patient will need to be followed closely given level of desaturation.
== END ==
PROVIDERS: Family Provider Family Medicine; PCP Family Medicine; Visit Provider Internal Medicine Critical Care Medicine
DX: J96.11 Chronic respiratory failure with hypoxia (principal); I27.29 Other secondary pulmonary hypertension
CPT/HCPCS: 94618

== ENCOUNTER 2018-09-01 08:40 | Day surgery (SDC) | payer MEDICARE, MEDICAID, SELFPAY ==
[2018-09-01 09:14] VITALS: BMI 39.1
[2018-09-01 09:35] LABS: Bedside Glucose 117 mg/dL (70-110)
[2018-09-01] MEDS: MethylPREDNISolone Acetate 80 MG/ML Vial (10:07)
[2018-09-01] MEDS: Bupivacaine 0.5% PF 10 ML VIAL (10:07)
--- NOTE | 2018-09-01 10:10 | RAD_ITS ---
STUDY: XR HIP UNILATERAL RIGHT REASON FOR EXAM: Female, 67 years old. Right trochanteric bursa injection TECHNIQUE: 2 frontal views of the intertrochanteric hip obtained fluoroscopically, intraoperatively, are presented for interpretation. COMPARISON: None. FINDINGS: Imaged PICC placement of a needle along the cortical margin of the greater trochanter with injection of radiodense contrast distributed appropriately within the soft tissues. RAD/Fluoro Guided Needle Placement IMPRESSION: Greater trochanter soft tissue injection. Correlate with operative report. Electronically Signed: [place], at 15:10 EST Tel , Service support ,
--- NOTE | 2018-09-01 10:10 | RAD_ITS ---
STUDY: RIGHT HIP INJECTION. REASON FOR EXAM: Female, 67 years old. Injection of the right greater trochanteric bursa. FLUOROSCOPY TIME (if supplied): (0:20) minutes/seconds TECHNIQUE: Intraoperative fluoroscopic services provided for right trochanteric bursa injection. COMPARISON: None. FINDINGS: The needle is seen overlying the greater trochanter. RAD/Fluoro Guided Needle Placement IMPRESSION: Fluoroscopic services provided for injection of the right trochanteric bursa. Electronically Signed: Gianfranco Rowe MD at 14:25 EST Tel [phone], Service support ,
[2018-09-01 10:20] VITALS: BP 95/52; PULSE 60; RESP 16; TEMP 36.3; O2SAT 97
[2018-09-01 10:25] VITALS: BP 94/62; PULSE 54; RESP 16; O2SAT 95
[2018-09-01 10:35] VITALS: BP 106/64; PULSE 57; RESP 16; O2SAT 96
[2018-09-01 10:39] VITALS: BP 112/65; PULSE 58; RESP 16; TEMP 36.2; O2SAT 98
--- NOTE | 2018-09-01 11:03 | PCM.OPRPT ---
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 (2) Sacroiliitis, not elsewhere classified Status: Chronic (3) Trochanteric bursitis of right hip Status: Chronic Report of Operation Date of Procedure: 09/01/18 Pre-Operative Diagnosis: Sacroiliitis, sacroiliac joint dysfunction, right greater trochanteric bursitis Post-Operative Diagnosis: Sacroiliitis, sacroiliac joint dysfunction, right greater trochanteric bursitis Surgery/Procedure Performed:: Right-sided sacroiliac joint steroid injection under fluoroscopic guidance, right sided greater trochanteric bursa steroid injection under fluoroscopic guidance Description of Surgical Findings:: PROCEDURE: Right sacroiliac joint steroid injection under fluoroscopic guidance Right-sided greater trochanteric bursa steroid injection under fluoroscopic guidance PREOPERATIVE DIAGNOSIS: Sacroiliitis, sacroiliac joint dysfunction, right greater trochanteric bursitis POSTOPERATIVE DIAGNOSIS: Sacroiliitis, sacroiliac joint dysfunction, right greater trochanteric bursitis ANESTHESIA: MAC COMPLICATIONS: None BLOOD LOSS: Minimal PROCEDURE IN DETAIL: History and physical today was reviewed. Risks and benefits of the procedure were explained. The patient understood, agreed to our procedure, and informed consent was obtained. IV inserted per routine protocol. The patient was taken to the operating room, placed in a prone position with a pillow positioned underneath the abdomen. The right side of her lower back and buttock area was prepped and draped in a sterile fashion using iodine x3. Under fluoroscopy guidance, on AP view, the right sacroiliac joint was visualized the skin and subcutaneous tissue and size approximately 3 cc of 1% lidocaine using a 25-gauge regular needle under direct visualization fluoroscopy at approximately 15? angle using a 22-gauge 3-1/2 inch spinal needle the needle passed through the skin the tip of the needle's maneuver and directed towards the inferior one third of the posterior SI joint once tip of the needle is at the vicinity of the joint after negative aspiration for blood or CSF a total of 1 cc of contrast were injected to confirm correct placement of the needle as well as cephalocaudad spread of the contrast after repeated negative aspiration and confirmation a total of 4 cc of preservative-free 0.25% Marcaine with 40 mg of Depo-Medrol were injected in and around the SI joint. The needles were then removed intact, the right greater trochanteric notch was visualized under direct visualization fluoroscopy on AP view the skin and subcutaneous tissue anesthetized approximately 3 cc of 1% lidocaine using a 25-gauge regular needle, under direct visualization with fluoroscopy using a 22-gauge 5 inch spinal needle using the lateral approach the needle passed through the skin the tip of the needle's maneuver and directed towards the right greater trochanteric bursa once the tip of the needle was at the vicinity of the bursa after negative aspiration for blood a total of 1 cc of contrast were injected to confirm correct placement of the needle after repeated negative aspiration and confirmation a total of 5 cc of preservative-free 0.25% Marcaine with 40 mg of Depo-Medrol were injected in and around the bursa the needle was then removed intact The patient experienced no signs or symptoms intrathecal, intravascular injection. The patient experienced no paraesthesia. The procedure was completed without any apparent difficult, any complication. The patient appeared to tolerate well. ASSESSMENT AND PLAN: This is a 67-year-old Female with sacroiliitis, sacroiliac joint dysfunction, right greater trochanteric bursitis status post right sided sacroiliac joint steroid injection under fluoroscopic guidance, right greater trochanteric bursa steroid injection under fluoroscopic guidance. The patient will continue her current medications. The patient will follow in approximately 2 weeks for reevaluation.
== END 2018-09-01 11:05 | disposition home or self-care (01) ==
LOC: SDC 08:41 → AC 08:42
PROVIDERS: Family Provider Family Medicine; PCP Family Medicine; Referring Provider Anesthesiology Pain Medicine; Visit Provider Anesthesiology Pain Medicine
PROC: 3E0U3GC Introduction of Other Therapeutic Substance into Joints, Percutaneous Approach (ICD-10-PCS; CPT 27096; principal; 2018-09-01 10:05)
DX: M46.1 Sacroiliitis, not elsewhere classified (principal); M53.3 Sacrococcygeal disorders, not elsewhere classified; M70.61 Trochanteric bursitis, right hip; M19.90 Unspecified osteoarthritis, unspecified site; I50.9 Heart failure, unspecified; I27.20 Pulmonary hypertension, unspecified; J44.9 Chronic obstructive pulmonary disease, unspecified; G25.81 Restless legs syndrome; E11.9 Type 2 diabetes mellitus without complications; Z78.0 Asymptomatic menopausal state; Z79.82 Long term (current) use of aspirin; Z79.891 Long term (current) use of opiate analgesic; Z79.899 Other long term (current) drug therapy; Z87.891 Personal history of nicotine dependence
CPT/HCPCS: 01992; 20610; 27096; 76000; 77002; 82962; J7120; J3490

== ENCOUNTER → 2018-11-05 13:53 | Outpatient (CLI) | payer MEDICARE, MEDICAID, SELFPAY ==
[2018-11-04 14:55] VITALS: BMI 37.3
== END ==
PROVIDERS: Family Provider Family Medicine; PCP Family Medicine; Referring Provider Physician Assistant Medical; Visit Provider Physician Assistant Medical
DX: R00.2 Palpitations (principal)
CPT/HCPCS: 93225; 93226

== ENCOUNTER → 2019-03-19 | Outpatient (CLI) | payer MEDICARE, MEDICAID, SELFPAY ==
[2018-10-02 14:40] VITALS: BMI 39.1
[2019-01-01 13:08] VITALS: BMI 36.9
--- NOTE | 2019-03-20 06:38 | PFT ---
INTRODUCTION: The patient is a 68-year-old female that presents for pulmonary function studies secondary to a diagnosis of dyspnea. Respiratory therapy reports good patient effort. Bronchodilators were used during testing. INTERPRETATION: Forced expiration spirometry demonstrates the presence of a moderate large airways obstructive ventilatory defect. There was no significant response to aerosolized bronchodilators, based upon strict ATS criteria. Spirograms are of good quality and plateau gradually. Body plethysmography was performed and reveals an elevated RV to 142% of predicted, indicative of underlying air trapping. Diffusing capacity by single breath CO is reduced at 52% of predicted. IMPRESSION: Irreversible moderate large airways obstructive ventilatory defect with associated air trapping and symmetric reduction in diffusing capacity.
== END | disposition home or self-care (01) ==
LOC: PSN 13:07
PROVIDERS: Family Provider Family Medicine; PCP Family Medicine; Referring Provider Internal Medicine Critical Care Medicine; Visit Provider Internal Medicine Critical Care Medicine
DX: R06.00 Dyspnea, unspecified (principal)
CPT/HCPCS: 94060; 94726; 94729

== ENCOUNTER → 2019-03-27 | Outpatient (CLI) | payer MEDICARE, MEDICAID, SELFPAY ==
[2019-01-01 13:08] VITALS: BMI 36.9
--- NOTE | 2019-03-27 14:57 | VDLE_ITS ---
Reason For Study: Pain in left leg RIGHT LEFT CFV is compressible, spontaneous, phasic, CFV is compressible, spontaneous, phasic, competent and demonstrates normal competent, and demonstrates normal augmentation. augmentation. Procedure FV is compressible, spontaneous, phasic, Exam performed in department. competent and demonstrates normal A preliminary report was called and/or faxed augmentation. to Sarah. POP V is compressible, spontaneous, phasic, competent and demonstrates normal augmentation. T/P Trunk is compressible. PTV is compressible. LT PerV is compressible. Acute superficial vein thrombosis noted in the GSV extending from ankle to mid calf. Interpretation Summary Deep veins of the left lower extremity are patent and compressible segmentally. There is no evidence of left lower extremity deep vein thrombosis. Valvular competence appears intact within the proximal deep venous system on the left . Acute superficial thrombophlebitis is noted in the left great saphenous vein from the left ankle to the mid-calf. The left great saphenous vein is patent and compressible otherwise. Ordering Physician: Duane Smith Referring Physician: Joseph Dos Santos Performed By: Chiqui Smith RVT
== END | disposition home or self-care (01) ==
LOC: CVS 14:55
PROVIDERS: Family Provider Family Medicine; PCP Family Medicine; Referring Provider Physician Assistant Surgical; Visit Provider Physician Assistant Surgical
DX: M79.605 Pain in left leg (principal)
CPT/HCPCS: 93971

== ENCOUNTER → 2019-05-11 | Outpatient (CLI) | payer MEDICARE, MEDICAID, SELFPAY ==
[2019-04-22 13:01] VITALS: BMI 35.9
--- NOTE | 2019-05-11 13:59 | ECHOD_ITS ---
Reason For Study: DYSPNEA/SOB Procedure This was a 2D Doppler, Color Flow transthoracic echocardiogram. The study was technically difficult. Exam performed in department. Left Ventricle Normal LV size. Left ventricular systolic function is normal. The estimated ejection fraction is 60 %. There is evidence of diastolic dysfunction. No regional wall motion abnormalities noted. Right Ventricle Mildly dilated right ventricle. Mild global right ventricular systolic dysfunction. Atria The left atrium is mildly enlarged. The right atrium is mildly enlarged. No doppler evidence for ASD. Mitral Valve There is no mitral annular calcification. Normal mitral valve. Trivial mitral valve insufficiency. Tricuspid Valve Normal tricuspid valve. Mild tricuspid valve insufficiency. Right ventricular systolic pressure estimated to be 52 mmHg. Aortic Valve Trisinus/trileaflet aortic valve. Normal aortic valve. Pulmonic Valve The pulmonic valve is not well visualized. Mild (1+) pulmonic valve insufficiency. Great Vessels Normal sized aortic root. Calcified aortic root. Pericardium/Pleural No pericardial effusion. MMode/2D Measurements & Calculations LVIDd: 4.9 cm IVSd: 0.95 cm Ao root diam: 3.3 cm LVIDs: 3.3 cm LVPWd: 1.0 cm RVDd: 4.0 cm FS: 32.2 % LAV(MOD-bp): 63.4 ml LA A4 area: 19.5 cm2 LA dimension(2D): 4.0 cm LAV(MOD-bp) Indexed: 31.0 ml/m2 LAV(MOD-sp2): 64.5 ml LAV(MOD-sp4): 60.4 ml RA A4 area: 18.8 cm2 Time Measurements MV dec time: 0.18 sec Doppler Measurements & Calculations MV E max rm: 89.2 cm/sec Lat Peak E' Rm: 9.9 cm/sec Med Peak E' Rm: 5.1 cm/sec MV A max rm: 98.2 cm/sec E/E' lat: 9.0 E/E' med: 17.6 MV E/A: 0.91 Ao V2 max: 121.4 cm/sec LV V1 max: 95.3 cm/sec PA V2 max: 86.8 cm/sec Ao max P.9 mmHg LV V1 max P.6 mmHg TR max rm: 305.5 cm/sec TR max P.3 mmHg Interpretation Summary The study was technically difficult. Left ventricular systolic function is normal. The estimated ejection fraction is 60 %. Mildly dilated right ventricle. Mild global right ventricular systolic dysfunction. The left atrium is mildly enlarged. The right atrium is mildly enlarged. Trivial mitral valve insufficiency. Mild tricuspid valve insufficiency. Mild (1+) pulmonic valve insufficiency. Calcified aortic root. Right ventricular systolic pressure estimated to be 52 mmHg. There is evidence of diastolic dysfunction. Ordering Physician: Vitor Morales Referring Physician: RODRIGO NAVARRO Performed By: Therese Giron, YANIRA, RVT
== END | disposition home or self-care (01) ==
LOC: CVS 13:59
PROVIDERS: Family Provider Family Medicine; PCP Family Medicine; Referring Provider Internal Medicine Cardiovascular Disease; Visit Provider Internal Medicine Cardiovascular Disease
DX: J96.21 Acute and chronic respiratory failure with hypoxia (principal); J96.22 Acute and chronic respiratory failure with hypercapnia
CPT/HCPCS: 93306

== ENCOUNTER → 2019-06-23 09:58 | Outpatient (CLI) | payer MEDICARE, MEDICAID, SELFPAY ==
[2019-04-22 13:01] VITALS: BMI 35.9
--- NOTE | 2019-06-23 10:02 | RAD_ITS ---
PROCEDURE: Fluoroscopic guided Hip Injection DATE: June 23, 2019. INDICATION: Female, 68 years old. Chronic right hip pain. PHYSICIAN: Gianfranco Rowe M.D. MEDICATIONS: 6 mg of the betamethasone and 3 cc of 1% lidocaine. 2% Lidocaine administered subcutaneously for local anesthesia. ACCESS SITE: Right hip. NEEDLE: 22-gauge spinal needle. FLUOROSCOPY TIME (if supplied): (0:39) minutes/seconds FINDINGS: The risks, benefits, and alternatives to the procedure were explained to the patient. The specific risks of bleeding, infection, and neurovascular injury were detailed and accepted. Witnessed informed consent was obtained. A 22-gauge spinal needle was positioned under radiographic fluoroscopic localization. Approximately 2 cc of Isovue-300 instilled for localization purposes. Medication was then injected. The patient tolerated the procedure well without any immediate complications. RAD/Inj/Asp Forrest Jt Should/Hip/Knee IMPRESSION: 1. Successful fluoroscopic guided hip injection. Electronically Signed: Gianfranco Rowe, at 10:57 EDT , Service support ,
== END ==
PROVIDERS: Family Provider Family Medicine; PCP Family Medicine; Referring Provider Specialist; Visit Provider Specialist
DX: M25.551 Pain in right hip (principal)
CPT/HCPCS: 20610; 77002; Q9967; J0702

== ENCOUNTER → 2020-08-19 14:02 | Outpatient (CLI) | payer MEDICARE, MEDICAID, SELFPAY ==
[2020-08-03 14:55] VITALS: BMI 39.3
--- NOTE | 2020-08-19 14:06 | ECHOCS_ITS ---
Reason For Study: PHTN Procedure This was a 2D Doppler, Color Flow transthoracic echocardiogram. The study was technically difficult. Contrast injection was performed. Exam performed in department. Left Ventricle Normal LV size. Left ventricular systolic function is normal. The estimated ejection fraction is 55 %. Diastolic function is indeterminate. No regional wall motion abnormalities noted. Right Ventricle Mildly dilated right ventricle. Mild global right ventricular systolic dysfunction. Atria The left atrium is mildly enlarged. The right atrium is mildly enlarged. No doppler evidence for ASD. Mitral Valve There is no mitral annular calcification. Normal mitral valve. Trivial mitral valve insufficiency. Tricuspid Valve Normal tricuspid valve. Mild to moderate (1-2+) tricuspid valve insufficiency. Right ventricular systolic pressure estimated to be 36 mmHg. Aortic Valve Trisinus/trileaflet aortic valve. Normal aortic valve. Pulmonic Valve The pulmonic valve is not well visualized. Mild (1+) pulmonic valve insufficiency. Great Vessels The aortic root is not well visualized. Pericardium/Pleural No pericardial effusion. Medication 22 gauge I.V. with prn adaptor inserted into right arm. Diluted definity 3ml given slow IV push to enhance endocardial definition. MMode/2D Measurements & Calculations LVIDd: 4.4 cm IVSd: 1.2 cm LA dimension: 4.5 cm LVIDs: 3.3 cm LVPWd: 0.93 cm FS: 25.7 % LAV(MOD-bp): 57.3 ml LA A2C-A/L_phl: 19.4 cm2 RA A4 area: 13.7 cm2 LAV(MOD-bp) Indexed: 27.5 ml/m2 LAV(MOD-sp2): 57.6 ml LAV(MOD-sp4): 56.2 ml Time Measurements MV dec time: 0.28 sec Doppler Measurements & Calculations MV E max rm: 59.6 cm/sec Lat Peak E' Rm: 7.6 cm/sec Med Peak E' Rm: 5.2 cm/sec MV A max rm: 90.2 cm/sec E/E' lat: 7.9 E/E' med: 11.4 MV E/A: 0.66 MV V2 max: 86.3 cm/sec MV P1/2t max rm: 63.1 cm/sec Ao V2 max: 110.5 cm/sec MV max P.0 mmHg MV P1/2t: 76.6 msec Ao max P.9 mmHg MV V2 mean: 41.4 cm/sec MV dec slope: 241.3 cm/sec2 MV mean P.81 mmHg MV V2 VTI: 27.3 cm MVA(P1/2t): 2.9 cm2 LV V1 max: 82.7 cm/sec PA V2 max: 107.4 cm/sec PI dec slope: 98.1 cm/sec2 LV V1 max P.7 mmHg TR max rm: 300.1 cm/sec TR max P.0 mmHg Interpretation Summary The study was technically difficult. Contrast injection was performed. Left ventricular systolic function is normal. The estimated ejection fraction is 55 %. Mildly dilated right ventricle. Mild global right ventricular systolic dysfunction. The left atrium is mildly enlarged. The right atrium is mildly enlarged. Trivial mitral valve insufficiency. Mild to moderate (1-2+) tricuspid valve insufficiency. Mild (1+) pulmonic valve insufficiency. Right ventricular systolic pressure estimated to be 36 mmHg. Diastolic function is indeterminate. Ordering Physician: Vitor Morales Referring Physician: Vitor Morales Performed By: Perry Wild RCS
== END ==
PROVIDERS: PCP Student in an Organized Health Care Education/Training Program; Referring Provider Internal Medicine Cardiovascular Disease; Visit Provider Internal Medicine Cardiovascular Disease
DX: I27.20 Pulmonary hypertension, unspecified (principal); I36.1 Nonrheumatic tricuspid (valve) insufficiency
CPT/HCPCS: 93306; Q9957; A4216; C8929

== ENCOUNTER → 2020-10-05 12:15 | Outpatient (CLI) | payer MEDICARE, MEDICAID, SELFPAY ==
[2020-09-22 14:18] VITALS: BMI 38.1
== END ==
PROVIDERS: PCP Student in an Organized Health Care Education/Training Program; Visit Provider Nurse Practitioner Acute Care
DX: J96.11 Chronic respiratory failure with hypoxia (principal)
CPT/HCPCS: 94762

== ENCOUNTER → 2022-03-22 | Outpatient (CLI) | payer BC, MEDICAID, SELFPAY ==
--- NOTE | 2022-03-22 15:23 | PFTCOMP ---
COMPLETE PULMONARY FUNCTION TEST INTERPRETATION Brief HPI: Patient is a 71-year-old female, currently under the care of myself, who presents to [facility] for complete pulmonary function tests secondary to diagnosis of COPD. Respiratory therapist reports good effort and reproducible results. Interpretation: Forced expiration spirometry shows a mild large airways obstructive ventilatory defect with an FEV1 of 73% predicted. There is no significant bronchodilator response by strict ATS criteria. Spirograms are of good quality and plateau slowly, indicating slowly emptying areas of the lungs. The respiratory flow volume loop shows decreased expiratory flow rates at all lung volumes consistent with airway obstruction. Lung volumes by body plethysmography show a normal total lung capacity at 5.68 L, 114% predicted. FRC and RV are elevated out of proportion. Lung volume measurements are consistent with hyperinflation and air-trapping. Diffusion capacity by carbon monoxide is decreased at 56% predicted. The airway resistance is slightly elevated. Compared to previous pulmonary function tests from 03/20/2019, there has been no significant change. Impression: Irreversible mild large airways obstructive ventilatory defect, resulting in air trapping with hyperinflation, and a symmetric reduction diffusing capacity
== END | disposition home or self-care (01) ==
LOC: PSN 13:09
PROVIDERS: PCP Family Medicine; Referring Provider Internal Medicine Critical Care Medicine; Visit Provider Internal Medicine Critical Care Medicine
DX: J44.9 Chronic obstructive pulmonary disease, unspecified (principal)
CPT/HCPCS: 94060; 94726; 94729